=== PATIENT | female | born 1965 | race Caucasian/White ===

== ENCOUNTER 2018-02-11 11:32 | Emergency (ER) | payer MEDICAID ==
[~2018-02-11] VITALS: Ht 167.6 cm; Wt 95.3 kg
--- NOTE | 2018-02-11 11:32 | NUR ---
PT BIBA TO BED 3.
[2018-02-11 11:35] VITALS: BP 165/90
--- NOTE | 2018-02-11 11:39 | NUR ---
52 YO F BIBA AFTER SYNCOPAL EPISODE. PER HAT BLOCK BENCH HAND AND HUSABAND (AT BEDSIDE) PT AND SPOUSE WERE ARGUING, WHEN PT "LEANED UP AGAINST THE WALL, SLID DOWN THE WALL AND FELL TO THE FLOOR". PT VSS. RESPIRATIONS EVEN AND UNLABORED. CMS INTACT. PT IS NONVERBAL AT THIS TIME. PT IS NONRESPONSIVE TO VOICE/TOUCH AT THIS TIME. WHEN PALPATING PT SIDE/ABD, PT MOVEMENT NOTED AT THIS TIME. NO PAST MED HX. NKDA. ER MD CARBAJAL MADE AWARE OF PT CONDITION. NEEDS MET AT THIS TIME. WILL CONTINUE TO MONITOR.
[2018-02-11 12:08] LABS: BASOPHILS # (AUTO) 0.3 K/uL (0.00-0.22); EOSINOPHILS # (AUTO) 0.1 K/uL (0-0.4); EOSINOPHILS % (AUTO) 1.9 % (0.0-4.0); HEMOGLOBIN 11.6 g/dL (12.0-16.0); LYMPHOCYTES # (AUTO) 1.1 K/uL (2.5-16.5); LYMPHOCYTES % (AUTO) 16.8 % (20.5-51.1); MEAN CORPUSCULAR HEMOGLOBIN 32 pg (27-31); MEAN CORPUSCULAR HGB CONC 34 g/dL (33-37); MEAN CORPUSCULAR VOLUME 93 fL (80-94); MONOCYTES # (AUTO) 0.6 K/uL (0.8-1.0); MONOCYTES % (AUTO) 8.6 % (1.7-9.3); NEUTROPHILS # (AUTO) 4.6 K/uL (1.8-7.7); NEUTROPHILS % (AUTO) 68.7 % (42.2-75.2); PLATELET COUNT (AUTO) 303 K/uL (140-450); RED BLOOD CELL COUNT(AUTO) 3.67 MIL/uL (4.20-5.40); RED CELL DISTRIBUTION WIDTH 12.8 % (11.6-13.7); WHITE BLOOD COUNT (AUTO) 6.7 K/uL (4.8-10.8)
[2018-02-11 12:39] LABS: ALBUMIN 2.7 g/dL (3.4-5.0); ANION GAP 11.1 (8-16); CARBON DIOXIDE 26.2 mmol/L (21-32); POTASSIUM 3.3 mmol/L (3.5-5.1); TOTAL BILIRUBIN 0.5 mg/dL (0.0-1.0)
--- NOTE | 2018-02-11 12:47 | NUR ---
PT IS NO LONGER AT THE BEDSIDE. PT DTR IS NOW AT THE BEDSIDE. PT IS AWAKE AND TALKING. A&O X 4. DENIES ANY PAIN. SPEECH IS CLEAR. C/O "CHEST CONGESTION W/ MAYBE HEART PAIN". LUNG SOUNDS CLEAR BILATERALLY. RESPIRATIONS EVEN AND UNLABORED. ER MD NOTIFIED. PT NEEDS MET AT THIS TIME. WILL CONTINUE TO MONITOR.
[2018-02-11] MEDS ORDERED: KETOROLAC 30 MG/ML VIAL IVP ONE (13:00)
[2018-02-11 13:19] LABS: PROTHROMBIN TIME 10.3 secs (10.8-13.4)
--- NOTE | 2018-02-11 14:17 | NUR ---
PT RE-ASSESSED PRIOR TO D/C W/ O2 SAT 81%. ER MD CARBAJAL NOTIFIED. APPLIED O2 VIA NC 2L/MIN. PT O2 SAT INCREASED RO 99%. WILL CONTINUE TO MONITOR.
[2018-02-11] MEDS ORDERED: NACL 0.9% 1,000 ML IV SCH (14:42)
[2018-02-11] MEDS ORDERED: ALBUTEROL SULFATE/IPRATROPIU 3 ML SOL IH PRN (14:45)
[2018-02-11] MEDS ORDERED: MECLIZINE 25 MG TAB PO PRN (14:45)
[2018-02-11] MEDS ORDERED: ACETAMINOPHEN 325 MG TAB PO PRN (14:45)
--- NOTE | 2018-02-11 14:50 | NUR ---
PT STATES "I FEEL FINE. I WANT TO GO HOME"; PT STATES NO SHORTNESS OF BREATH, NO DIFFICULTY BREATHING, NO PAIN AT THIS TIME; BL LUNG SOUNDS CLEAR, RR EVEN/UNLABORED, EQUAL RISE/FALL OF CHEST NOTED AT THIS TIME; PT SPEAKING IN FULL, COMPLETE SENTENCES AT THIS TIME; PT AA&OX4 TO SELF, TIME, DATE & SITUATION; CHANGED PULSE OXIMETRY AND REMOVED O2; PT O2 SATURATION 100% ON ROOM AIR AT THIS TIME; ER MD DR. CARBAJAL NOTIFIED. OK TO DISCHARGE.
--- NOTE | 2018-02-11 14:55 | NUR ---
IV removed, catheter intact and site benign. Applied folded 4x4 gauze and tape to stop bleeding. PT TOLERATED PROCEDURE WELL.
[2018-02-11 14:56] VITALS: BP 141/80
--- NOTE | 2018-02-11 14:57 | NUR ---
Patient discharged with v/s stable. Written and verbal after care instructions given and explained. Patient alert, oriented and verbalized understanding of instructions. Ambulatory with steady gait. All questions addressed prior to discharge. ID band removed. Patient advised to follow up with PMD. Rx of SUDAFED 120 MG AND PREDNISONE 20 MG given. Patient educated on indication of medication including possible reaction and side effects. Opportunity to ask questions provided and answered.
[2018-02-11] MEDS ORDERED: ALBUTEROL SULFATE/IPRATROPIU 3 ML SOL IH SCH (19:00)
[2018-02-11] MEDS ORDERED: POTASSIUM CHLORIDE 20% 40 MEQ/15 ML UDC PO SCH (21:00)
[2018-02-12] MEDS ORDERED: PANTOPRAZOLE 40 MG TABEC PO SCH (09:00)
[2018-02-12] MEDS ORDERED: DOCUSATE 100 MG/10 ML UDC GT SCH (09:00)
--- NOTE | 2018-02-12 17:02 | NUR ---
P.T. NOTES P.T. EVAL ORDER CANCELLED.
== END 2018-02-11 14:57 | disposition home or self-care (01) ==
LOC: MED 11:32 → UNDOADMIN 14:48 → MTU 14:48 → MED 14:57
DX: R55 Syncope and collapse (principal); J32.9 Chronic sinusitis, unspecified
CPT/HCPCS: 36415; 70450; 71045; 80053; 83880; 84484; 85025; 85610; 85730; 93005; 96372; 99285; J1885; Q0092

== ENCOUNTER 2021-05-06 15:42 | Emergency (ER) | payer SELFPAY ==
[~2021-05-06] VITALS: Ht 162.6 cm; Wt 95.3 kg
[2021-05-06 15:54] VITALS: BP 111/68
--- NOTE | 2021-05-06 16:19 | NUR ---
PT AMBULATED TO BED 11.
--- NOTE | 2021-05-06 16:45 | NUR ---
56 YEAR OLD FEMALE COMPLAINS OF PELVIC PAIN X 1 MONTH. PT STATES NAUSEA, VOMITTING, DIARRHEA. PT STATES THAT SHE DID METH 2 DAYS AGO. BOWEL SOUNDS + ALL QUADRANTS, SOFT NONTENDER. PT AOX4, BREATHING EVEN AND UNLABORED, SKIN WARM AND DRY. BED IN LOWEST POSITION, LOCKED, BED RAIL UPX1 PMH - METH ABUSE ALLERGIES - NKA
--- NOTE | 2021-05-06 17:25 | NUR ---
PT ALERT AND AWAKE, BREATHING EVEN AND UNLABORED. PT STILL UNABLE TO URINATE, ANSON YODER AWARE
[2021-05-06] MEDS ORDERED: ACET-10509 PO (17:50)
--- NOTE | 2021-05-06 17:55 | NUR ---
Patient discharged with v/s stable. Written and verbal after care instructions about abdominal pain given and explained. Patient alert, oriented and verbalized understanding of instructions. Ambulatory with steady gait. All questions addressed prior to discharge. ID band removed. Patient advised to follow up with PMD. Rx of tylenol given. Patient educated on indication of medication including possible reaction and side effects. Opportunity to ask questions provided and answered.
[2021-05-06 17:57] VITALS: BP 107/60
== END 2021-05-06 17:55 | disposition home or self-care (01) ==
LOC: MED 15:42
DX: R10.30 Lower abdominal pain, unspecified (principal); Z79.899 Other long term (current) drug therapy
CPT/HCPCS: 81002; 99282

== ENCOUNTER 2021-07-20 19:34 | Emergency (ER) | payer SELFPAY ==
[~2021-07-20] VITALS: Ht 162.6 cm; Wt 102.1 kg
[~2021-07-20 19:34] MED LIST: ACET-10509 PO
[2021-07-20 20:21] VITALS: BP 106/47
--- NOTE | 2021-07-20 20:21 | NUR ---
TO A/W ERMD EVALUATION.
--- NOTE | 2021-07-20 20:30 | NUR ---
PT EVALUATED BY DR. SORIANO
--- NOTE | 2021-07-20 21:45 | NUR ---
PT UP FOR DISCHARGE. PT LEFT WITHOUT DISCHARGE INSTRUCTIONS.
== END 2021-07-20 21:45 | disposition home or self-care (01) ==
LOC: MED 19:34
DX: U07.1 COVID-19 (principal); J12.89 Other viral pneumonia; B34.9 Viral infection, unspecified; Z79.899 Other long term (current) drug therapy
CPT/HCPCS: 71045; 99284

== ENCOUNTER 2021-07-22 23:45 | Inpatient (IN) | payer OTHER, SELFPAY ==
[~2021-07-22] VITALS: Ht 162.6 cm; Wt 127.9 kg
[2021-07-22 23:50] VITALS: BP 134/62
--- NOTE | 2021-07-22 23:50 | NUR ---
TO BED AMBULATORY
[2021-07-23] VITALS (10 sets, daily range): BP systolic 122–164; BP diastolic 62–88
--- NOTE | 2021-07-23 00:10 | NUR ---
RECEIVED IN BED 3 , COVID (+) WITH C/O GENERAL WEAKNESS. IS RESTLESS AND MOANS LOUDLY. IS PALE WARM AND DRY
[2021-07-23] MEDS ORDERED: metroNIDAZOLE 500 MG/NS PREMIX 100 ML IV ONE (01:10)
[2021-07-23] MEDS ORDERED: LEVOFLOXACIN 500 MG/D5W PREMIX 100 ML IV ONE (01:10)
[2021-07-23 02:13] LABS: MEAN CORPUSCULAR HEMOGLOBIN 20 pg (27-31); MEAN CORPUSCULAR HGB CONC 27 g/dL (33-37); MEAN CORPUSCULAR VOLUME 72.5 fL (80-94); PLATELET COUNT (AUTO) 405 K/uL (140-450); RED BLOOD CELL COUNT(AUTO) 1.98 MIL/uL (4.20-5.40); RED CELL DISTRIBUTION WIDTH 23.5 % (11.6-13.7); WHITE BLOOD COUNT (AUTO) 18.6 K/uL (4.8-10.8)
[2021-07-23] MEDS ORDERED: KETOROLAC 30 MG/ML VIAL IVP ONE (02:15)
[2021-07-23] MEDS ORDERED: LORazepam 2 MG/ML VIAL IVP ONE ×2 (02:15→06:20)
--- NOTE | 2021-07-23 02:20 | NUR ---
TO CT VIA [facility]
[2021-07-23 02:25] LABS: HEMATOCRIT 14.3 % (36-48); HEMOGLOBIN 3.9 g/dL (12.0-16.0)
[2021-07-23 02:30] LABS: LYMPHOCYTES % (MANUAL) 4 % (20-46); MONOCYTES % (MANUAL) 1 % (5-12)
--- NOTE | 2021-07-23 02:30 | NUR ---
RETURNED FROM CT
[2021-07-23 02:32] LABS: ALBUMIN 2.4 g/dL (3.4-5.0); ANION GAP 19.2 (8-16); CARBON DIOXIDE 17.1 mmol/L (21-32); CREATININE 2.3 mg/dL (0.6-1.3); POTASSIUM 4.3 mmol/L (3.5-5.1); TOTAL BILIRUBIN 0.4 mg/dL (0.0-1.0)
--- NOTE | 2021-07-23 02:52 | NUR ---
Female Pump Service Supervisor accompanied female patient for Rectal Exam. Patient tolerated well.
--- NOTE | 2021-07-23 03:26 | NUR ---
REMAINS VERY RESTLESS. ASSISTED ONTO BEDPAN, UNABLE TO VOID. CHANGED INTO GOWN, VERY RESTLESS. LABS WERE DRAWN FOR TYPE AND CROSS.
--- NOTE | 2021-07-23 03:50 | NUR ---
GAVE VERBAL AUTHORIZATION FOR BLOODTRANSFUSION OVER TO PHONE AND WITNESSED BY JUWAN RUFFIN. PATIENT'S ALSO GAVE VERBAL CONSENT FOR FULL CODE.
--- NOTE | 2021-07-23 04:00 | NUR ---
THRASHING AROUND RIPPED IV OUT. PULLS CORDS. BROKE CARDIAC LEADS. NO SEDATION AVAILABLE. ENCOURAGED PT TO REMAIN IN BED. CM = ST
[2021-07-23 04:13] LABS: APPEARANCE,URINE HAZY (CLEAR); BILIRUBIN,URINE NEGATIVE (NEGATIVE); BLOOD, URINE NEGATIVE (NEGATIVE); COLOR,URINE YELLOW (YELLOW); LEUKOCYTE ESTERASE ,URINE NEGATIVE (NEGATIVE); NITRITE, URINE NEGATIVE (NEGATIVE); UGLUCOSE NEGATIVE (NEGATIVE)
--- NOTE | 2021-07-23 04:20 | NUR ---
PRBC'S TRANSFUSION BEGUN.
[2021-07-23 04:25] LABS: RBC,URINE 0-5 /HPF (0-5)
--- NOTE | 2021-07-23 05:10 | NUR ---
UNIT #1 PRBC'S COMPLETED
--- NOTE | 2021-07-23 05:20 | NUR ---
UNIT #2 PRB'S BEGUN
[2021-07-23] MEDS ORDERED: ERGOCALCIFEROL 50,000 IU SGL PO ONE (05:40)
[2021-07-23] MEDS ORDERED: DEXAMETHASONE 4 MG/ML VIAL IVP ONE (05:40)
[2021-07-23] MEDS ORDERED: LOVENOX 1MG/KG Q12H SUBQ SCH (06:15)
[2021-07-23] MEDS ORDERED: HYDROcodone/APAP 5/325 MG 1 TAB TAB PO PRN (06:20)
--- NOTE | 2021-07-23 06:30 | NUR ---
ADMISSION ORDERS RECEIVED. MEDICATED WITH ATIVEN 1 MG SLOW IVP.
[2021-07-23] MEDS ORDERED: VITAMIN D 400 IU TAB ONE (06:37)
--- NOTE | 2021-07-23 06:49 | NUR ---
PATIENT FOUND REMOVING GOWN, LINES, AND ATTEMPTING TO REMOVE IV ACCESS. PATIENT WAS REORIENTED TO ROOM AND REASON FOR INTERVENTIONS. PATIENT CONTINUED AGITATED, ATTEMPTING TO GET OUT OF BED. PRN ATIVAN WAS ADMINISTERED PER MD ORDER. PATIENT STILL CONTINUED WITH AGITATION, ATTEMPTING TO GET OUT OF BED, ALMOST FALLING. DR VILLAGRAN WAS CALLED AND MADE AWARE, PER DR VILLAGRAN, GO SOFT WRIST RESTRAINTS ORDERED AT THIS TIME. Addendum: 07/23/21 at 1903 by fOelia Romo RN RN THE TIME IS 1848.
--- NOTE | 2021-07-23 07:00 | NUR ---
DR GUEVARA HERE TO EXAMINE PT
--- NOTE | 2021-07-23 07:13 | NUR ---
Received report from AUGUSTIN Franco. Transfer of care at this time.
--- NOTE | 2021-07-23 07:22 | NUR ---
GAVE REPORT TO AUGUSTIN FIGUEROA FOR PENDING ADMISSION. ETA 15 MINUTES.
--- NOTE | 2021-07-23 07:44 | NUR ---
RECEIVED REPORT FROM ED NURSE. PATIENT WAS BROUGHT IN TO ICU BED 1 VIA GURNEY, ALOC, LOW MUMBLING WHEN SPOKEN TO, NOT ANSWERING QUESTIONS NOR OPENING EYES. PER ED NURSE, SECOND UNIT OF PRBCs CURRENTLY INFUSING INTO R AC 18G. BREATHING EVEN AND UNLABORED, NO SIGNS OF ACUTE DISTRESS NOTED. PATIENT PLACED ON CORRECTIONAL OFFICER CHIEF. ADMISSION VITALS: HR 90, SPO2 88%, RR 23, BP 134/78, PLACED ON 2L NC WITH SPO2 INCREASED TO 100%. PATIENT POSITIONED IN ICU BED, NEW BEDDING AND GOWN PROVIDED. SKIN INTACT. SAFETY MEASURES IN PLACE. WILL MONITOR CLOSELY.
--- NOTE | 2021-07-23 07:47 | NUR ---
Patient will be admitted to care of DR. VILLAGRAN. Admited to ICU. Will go to room 1. Belongings list completed. Report to AUGUSTIN FIGUEROA.
[2021-07-23] MEDS ORDERED: guaiFENesin DM 200/20 MG-10 ML 10 ML UDC PO PRN (08:00)
[2021-07-23] MEDS: DEXT 5% /NACL 0.9% 1,000 ML IV SCH ×3 (08:00→23:12)
[2021-07-23] MEDS ORDERED: HYDROcodone/APAP 7.5/325 MG 1 TAB PO PRN (08:00)
[2021-07-23] MEDS ORDERED: ACETAMINOPHEN 325 MG TAB PO PRN (08:00)
[2021-07-23] MEDS ORDERED: ZOLPIDEM 5 MG TAB PO PRN (08:00)
[2021-07-23] MEDS ORDERED: DOCUSATE SODIUM 100 MG GELCAP PO PRN (08:00)
[2021-07-23] MEDS ORDERED: ALBUTEROL HFA MDI 90 MCG/ACTUATION 8 GM INH PRN (08:00)
[2021-07-23] MEDS ORDERED: ONDANSETRON 4 MG/2 ML VIAL IM/IVP PRN (08:00)
[2021-07-23] MEDS ORDERED: PANTOPRAZOLE 40 MG TABEC PO SCH (09:00)
[2021-07-23] MEDS ORDERED: ENOXAPARIN 120 MG/0.8 ML SYR SUBQ SCH (09:00)
[2021-07-23] MEDS: ASCORBIC ACID 500 MG TAB PO SCH (09:00)
[2021-07-23] MEDS: ZINC SULF 220 MG CAP PO SCH (09:00)
--- NOTE | 2021-07-23 09:32 | NUR ---
MORNING PO MEDS BEING HELD PATIENT IS NOT RESPONDING TO RN AND NOT COOPERATIVE AT THIS TIME. WILL CONTINUE TO MONITOR AND REASSESS.
--- NOTE | 2021-07-23 10:58 | NUR ---
FAMILY CALLED IN ATTEMPTS TO OBTAIN PATIENT HISTORY PATIENT IS UNABLE TO PROVIDE AT THIS TIME. WILL FOLLOW UP AND CALL BACK AGAIN IF NEEDED.
[2021-07-23 10:59] LABS: BASOPHILS % (AUTO) 0.1 % (0.0-2.0); HEMATOCRIT 22.8 % (36-48); HEMOGLOBIN 7.2 g/dL (12.0-16.0); LYMPHOCYTES # (AUTO) 0.7 K/uL (2.5-16.5); LYMPHOCYTES % (AUTO) 4.8 % (20.5-51.1); MEAN CORPUSCULAR HEMOGLOBIN 25 pg (27-31); MEAN CORPUSCULAR HGB CONC 32 g/dL (33-37); MEAN CORPUSCULAR VOLUME 79.7 fL (80-94); MONOCYTES # (AUTO) 0.3 K/uL (0.8-1.0); NEUTROPHILS # (AUTO) 14.3 K/uL (1.8-7.7); NEUTROPHILS % (AUTO) 93.1 % (42.2-75.2); PLATELET COUNT (AUTO) 310 K/uL (140-450); RED BLOOD CELL COUNT(AUTO) 2.86 MIL/uL (4.20-5.40); RED CELL DISTRIBUTION WIDTH 26.1 % (11.6-13.7); WHITE BLOOD COUNT (AUTO) 15.3 K/uL (4.8-10.8)
[2021-07-23 11:06] LABS: PROTHROMBIN TIME 12.6 secs (10.8-13.4)
--- NOTE | 2021-07-23 11:06 | NUR ---
DR VILLAGRAN WAS CALLED AND UPDATED ON PATIENT CONDITION AND LABORATORY VALUES SP BLOOD TRANSFUSION. PER DR VILLAGRAN, HOLD LOVENOX AND RECHECK CBC AT 1600 THIS SHIFT.
[2021-07-23 11:17] LABS: CHOL/HDL RATIO 3.2 (1-4.5); FREE T4 (FREE THYROXINE) 1.29 ng/dL (0.76-1.46); PHOSPHORUS 3.6 mg/dL (2.5-4.9); THYROID STIMULATING HORMONE 0.09 uIU/mL (0.34-3.74)
--- NOTE | 2021-07-23 11:22 | NUR ---
PATIENT , ORI, CALLED BACK AND PROVIDED PATIENT HISTORY/INFORMATION AT THIS TIME. HE WAS UPDATED ON PATIENT CONDITION AND ALL HIS QUESTIONS ANSWERED.
[2021-07-23] MEDS ORDERED: metroNIDAZOLE 500 MG/NS PREMIX 100 ML IV SCH (13:00)
--- NOTE | 2021-07-23 15:33 | NUR ---
PER DR VALDOVINOS, STOP ALL ABX AT THE MOMENT, ORDER STOOL CULTURE AND TEST FOR SHIGA TOXIN.
--- NOTE | 2021-07-23 16:18 | NUR ---
MEDICATIONS HELD DUE TO PATIENT LACK OF RESPONSE PER LETHARGIC STATE, MD AWARE AND IN AGREEMENT. WILL CONTINUE TO REASSESS.
[2021-07-23 17:39] LABS: BASOPHILS % (AUTO) 0.1 % (0.0-2.0); EOSINOPHILS % (AUTO) 0.1 % (0.0-4.0); HEMATOCRIT 24.3 % (36-48); HEMOGLOBIN 7.5 g/dL (12.0-16.0); LYMPHOCYTES % (AUTO) 5.8 % (20.5-51.1); MEAN CORPUSCULAR HEMOGLOBIN 25 pg (27-31); MEAN CORPUSCULAR HGB CONC 31 g/dL (33-37); MEAN CORPUSCULAR VOLUME 81.8 fL (80-94); MONOCYTES # (AUTO) 0.3 K/uL (0.8-1.0); MONOCYTES % (AUTO) 1.9 % (1.7-9.3); NEUTROPHILS % (AUTO) 92.1 % (42.2-75.2); PLATELET COUNT (AUTO) 306 K/uL (140-450); RED BLOOD CELL COUNT(AUTO) 2.97 MIL/uL (4.20-5.40); RED CELL DISTRIBUTION WIDTH 25.2 % (11.6-13.7); WHITE BLOOD COUNT (AUTO) 17.3 K/uL (4.8-10.8)
[2021-07-23] MEDS: LORazepam 2 MG/ML VIAL IM/IVP PRN (18:45)
--- NOTE | 2021-07-23 18:49 | NUR ---
PATIENT FOUND REMOVING GOWN, LINES, AND ATTEMPTING TO REMOVE IV ACCESS. PATIENT WAS REORIENTED TO ROOM AND REASON FOR INTERVENTIONS. PATIENT CONTINUED AGITATED, ATTEMPTING TO GET OUT OF BED. PRN ATIVAN WAS ADMINISTERED PER MD ORDER. PATIENT STILL CONTINUED WITH AGITATION, ATTEMPTING TO GET OUT OF BED, ALMOST FALLING. DR VILLAGRAN WAS CALLED AND MADE AWARE, PER DR VILLAGRAN, GO SOFT WRIST RESTRAINTS ORDERED AT THIS TIME.
--- NOTE | 2021-07-23 19:10 | NUR ---
RECEIVED PATIENT ON BED, RESTLESS, AGITATED AND CONFUSED; ON ROOM AIR SO2 96%. CARRDIACSCOPE SHOWS ON SINUS RHYTHM HR 93/MIN NO ARRHYTHMIAS SEEN. ABDOMEN IS SOFT AND OBESE, BOWEL SOUNDS +. WITH WYNNE CATH IN SITU TO GRAVITY DRAINAGE BAG DRAINING TO CLEAR YELLOW URINE OUTPUT; INTACT.
--- NOTE | 2021-07-23 20:30 | NUR ---
TOLERATED ORALLY;ATE HER DINNER WITH POOR APPETITE; BUT SHE VOMITTED IT ALL AFTER QUITE SOMETIME.
[2021-07-23] MEDS ORDERED: HALOPERIDOL IM 5 MG/ML VIAL ONE (22:40)
[2021-07-23] MEDS ORDERED: HALOPERIDOL IM 5 MG/ML VIAL IM SCH (22:40)
--- NOTE | 2021-07-23 22:40 | NUR ---
PATIENT IS SO RESTLESS AND AGITATED, SCREAMING AT THE TOP OF HER VOICE;REFERRED TO DR. VILLAGRAN, WITH ORDER TO GIVE HALDOL 5MG IM;GIVEN AND PATIENT WAS ABLE TO CALM AND ABLE TO SLEEP THEREAFTER.
[2021-07-24] VITALS (23 sets, daily range): BP systolic 118–167; BP diastolic 42–87
[2021-07-24] MEDS: LORazepam 2 MG/ML VIAL IM/IVP PRN ×2 (03:09→10:35)
[2021-07-24 06:22] LABS: ANION GAP 13.9 (8-16); CARBON DIOXIDE 20.9 mmol/L (21-32); CREATININE 1.3 mg/dL (0.6-1.3); POTASSIUM 3.8 mmol/L (3.5-5.1); TOTAL BILIRUBIN 0.5 mg/dL (0.0-1.0)
[2021-07-24] MEDS: DEXT 5% /NACL 0.9% 1,000 ML IV SCH (06:25)
[2021-07-24 06:26] LABS: BASOPHILS % (AUTO) 0.2 % (0.0-2.0); EOSINOPHILS % (AUTO) 0.2 % (0.0-4.0); HEMATOCRIT 22.8 % (36-48); HEMOGLOBIN 7.2 g/dL (12.0-16.0); MEAN CORPUSCULAR HEMOGLOBIN 25 pg (27-31); MEAN CORPUSCULAR HGB CONC 31 g/dL (33-37); MEAN CORPUSCULAR VOLUME 80.7 fL (80-94); MONOCYTES # (AUTO) 0.4 K/uL (0.8-1.0); MONOCYTES % (AUTO) 2.6 % (1.7-9.3); NEUTROPHILS # (AUTO) 12.4 K/uL (1.8-7.7); PLATELET COUNT (AUTO) 329 K/uL (140-450); RED BLOOD CELL COUNT(AUTO) 2.82 MIL/uL (4.20-5.40); WHITE BLOOD COUNT (AUTO) 13.9 K/uL (4.8-10.8)
[2021-07-24 06:40] LABS: LYMPHOCYTES % (AUTO) 7.4 % (20.5-51.1); NEUTROPHILS % (AUTO) 89.6 % (42.2-75.2)
[2021-07-24] MEDS ORDERED: LEVOFLOXACIN 750 MG/D5W PREMIX 150 ML IV SCH (07:00)
[2021-07-24 07:06] LABS: T4 (THYROXINE) 7.9 ug/dL (4.5-12.0)
--- NOTE | 2021-07-24 07:20 | NUR ---
RECEIVED BEDSIDE REPORT FROM POWER ELECTRONICS RESEARCH ENGINEER NURSE. PATIENT SUPINE IN BED, HOB 30 DEGREES, SLEEPING, RESPONDS TO NAME. BREATHING EVEN AND UNLABORED, NO SIGNS OF ACUTE DISTRESS NOTED ON 2L NC. GO SOFT WRIST RESTRAINS IN PLACE, NO SIGNS OF INJURY NOTED. WYNNE CATHETER IN PLACE, DRAINING TO GRAVITY. DRAFTSPERSON IN PLACE, SAFETY MEASURES IN PLACE.
--- NOTE | 2021-07-24 07:30 | NUR ---
RECEIVED REPORT FROM JOSE ANTONIO RUFFIN , PT IN BED WITH ETT TO VENT HOB UP 30 DEGREE. PICC LINE ON RT UPPER ARM, IN PRO MARIELA .D5.45 NS AT 40ML/H, PRESCEDEX IV DRIP AT O.2NCG/KG/HR. NG TUBE FEEDING 40ML/HR WYNNE CATH DRAIN SMALL AMOUNT OF YELLOW URINE.RECTAL BAG HAS DARK COLOR LIQUID BM.. Addendum: 07/24/21 at 0808 by Sayra Coppola RN WRONG PATIENT.
[2021-07-24] MEDS ORDERED: HALOPERIDOL IM 5 MG/ML VIAL ONE (07:49)
--- NOTE | 2021-07-24 07:49 | NUR ---
PATIENT BECAME AGITATED AND RESTLESS, ATTEMPTING TO REMOVE PULSE OX ON FINGER AND GET OUT OF SOFT WRIST RESTRAINTS AND OUT OF BED, ATTEMPTING TO PULL AT WNYNE CATHETER. PATIENT REORIENTED TO ROOM AND SITUATION WITH CONTINUED AGITATION. DR OLSEN AT BEDSIDE AT THIS TIME AND ORDERS HALDOL 5MG IVP ONE TIME ORDER. MEDICATION ADMINISTERED, PATIENT NEEDING EDUCATION REINFORCEMENT. WILL CONTINUE TO MONITOR CLOSELY. ORDER FOR PRECEDEX DRIP PLACED AT THIS TIME PER DR OLSEN ORDERS WELL. Addendum: 07/24/21 at 0801 by Ofelia Romo RN RN HALDOL IM AND PRECEDEX DRIP
[2021-07-24 08:06] LABS: FOLIC ACID 19.5 ng/mL (>3.0)
[2021-07-24] MEDS ORDERED: HALOPERIDOL IM 5 MG/ML VIAL IM SCH (08:30)
[2021-07-24] MEDS: ASCORBIC ACID 500 MG TAB PO SCH (09:00)
[2021-07-24] MEDS: ZINC SULF 220 MG CAP PO SCH (09:00)
--- NOTE | 2021-07-24 09:01 | NUR ---
RECEIVED PHONE CALL FROM DR BEE AT THIS TIME. PER CHEMISTRY LAB VALUE RESULTS, RECEIVED ORDERS TO CHANGE FLUID TO D5 0.45NS @ 100 ML/HR.
[2021-07-24] MEDS: DEXT 5% / NACL 0.45% 1,000 ML IV SCH ×2 (09:05→19:05)
--- NOTE | 2021-07-24 09:58 | NUR ---
PO MEDS HELD DUE TO PATIENT SLEEPING AT THIS TIME SP CALMING MEDICATIONS. WILL REASSESS WHEN PATIENT WAKES UP AND IS MORE ALERT.
[2021-07-24] MEDS: DEXMEDETOMIDINE HCL 400 MCG in NACL 0.9% 96 ML IV SCH ×4 (11:31→22:18)
[2021-07-24] MEDS: SODIUM FERRIC GLUCONATE 125 MG in NACL 0.9% 100 ML IV SCH (12:00)
--- NOTE | 2021-07-24 19:30 | NUR ---
RECEIVED PATIENT FROM AM SHIFT NURSE FOR CONTINUITY OF CARE. RASS -3. RESPIRATIONS EVEN, UNLABORED. CONTINUES ON O2 2L VIA NC. O2SAT 97%. NO S/S RESPIRATORY DISTRESS. S1/S2 AUSCULTATED. FLACC 0. SKIN WARM, DRY. IV SITE TO RIGHT FOREARM 20G PATENT/INTACT, INFUSING FLUIDS AND PRECEDEX WELL. ABDOMEN SOFT, NONTENDER, NONDISTENDED. BOWEL SOUNDS ACTIVE x4 QUADRANTS. WYNNE CATHETER PATENT WITH YELLOW URINE DRAINING TO GRAVITY. SAFETY PRECAUTIONS IN PLACE. CALL LIGHT IN REACH. ISOLATION PRECAUTIONS OBSERVED BY ALL STAFF.
--- NOTE | 2021-07-24 21:14 | NUR ---
ALL NEEDS MET. NO S/S RESPIRATORY DISTRESS. FLACC 0. PATIENT IS CLEAN/DRY.
--- NOTE | 2021-07-24 23:30 | NUR ---
INCONTINENT CARE RENDERED. PATIENT WITH SMEAR BM, UNABLE TO OBTAIN SAMPLE AT THIS TIME. NO S/S RESPIRATORY DISTRESS. FLACC 0. CALL LIGHT IN REACH. SAFETY PRECAUTIONS IN PLACE. ISOLATION PRECAUTIONS OBSERVED.
[2021-07-25] VITALS (18 sets, daily range): BP systolic 137–176; BP diastolic 71–93
[2021-07-25] MEDS: LORazepam 2 MG/ML VIAL IM/IVP PRN (00:39)
--- NOTE | 2021-07-25 01:20 | NUR ---
TURNED AND REPOSITIONED. NO S/S RESPIRATORY DISTRESS. FLACC 0. PATIENT CLEAN/DRY. CALL LIGHT IN REACH. SAFETY PRECAUTIONS IN PLACE. ISOLATION PRECAUTIONS OBSERVED.
--- NOTE | 2021-07-25 03:00 | NUR ---
ALL NEEDS ANTICIPATED AND MET. NO S/S RESPIRATORY DISTRESS. FLACC 0. PATIENT CLEAN/DRY. CALL LIGHT IN REACH. SAFETY PRECAUTIONS IN PLACE. ISOLATION PRECAUTIONS OBSERVED.
[2021-07-25] MEDS: DEXT 5% / NACL 0.45% 1,000 ML IV SCH ×2 (04:11→15:05)
--- NOTE | 2021-07-25 05:10 | NUR ---
DUE MEDS GIVEN. NO S/S RESPIRATORY DISTRESS. FLACC 0. PATIENT CLEAN/DRY. CALL LIGHT IN REACH. SAFETY PRECAUTIONS IN PLACE. ISOLATION PRECAUTIONS OBSERVED.
[2021-07-25 05:59] LABS: ALBUMIN 1.8 g/dL (3.4-5.0); CARBON DIOXIDE 20.3 mmol/L (21-32); POTASSIUM 3.3 mmol/L (3.5-5.1); TOTAL BILIRUBIN 0.4 mg/dL (0.0-1.0)
[2021-07-25 06:01] LABS: BASOPHILS % (AUTO) 0.4 % (0.0-2.0); EOSINOPHILS # (AUTO) 0.1 K/uL (0-0.4); EOSINOPHILS % (AUTO) 0.9 % (0.0-4.0); HEMATOCRIT 23.6 % (36-48); HEMOGLOBIN 7.3 g/dL (12.0-16.0); LYMPHOCYTES # (AUTO) 0.6 K/uL (2.5-16.5); LYMPHOCYTES % (AUTO) 9.2 % (20.5-51.1); MEAN CORPUSCULAR HEMOGLOBIN 26 pg (27-31); MEAN CORPUSCULAR HGB CONC 31 g/dL (33-37); MEAN CORPUSCULAR VOLUME 81.9 fL (80-94); MONOCYTES # (AUTO) 0.3 K/uL (0.8-1.0); MONOCYTES % (AUTO) 5.1 % (1.7-9.3); NEUTROPHILS # (AUTO) 5.7 K/uL (1.8-7.7); NEUTROPHILS % (AUTO) 84.4 % (42.2-75.2); PLATELET COUNT (AUTO) 297 K/uL (140-450); RED BLOOD CELL COUNT(AUTO) 2.88 MIL/uL (4.20-5.40); RED CELL DISTRIBUTION WIDTH 25.8 % (11.6-13.7); WHITE BLOOD COUNT (AUTO) 6.7 K/uL (4.8-10.8)
--- NOTE | 2021-07-25 07:30 | NUR ---
RECIVED REPORT FROM FLEET DIRECTOR , PT. SLEEPING IN BED. THE MONITOR SHOW SHE IS SINUS BREDY CARDIA , IV GATE 20 ON LEFT HAND INFUSING D5 O.45 %NS AT 100ML/HR AND PRESIDEX 0.3MCG/KG/HR.. WYNNE CAT DRAIN CLEAR CARMELITA URINE. SKIN DRY AND WARM TO TOUCH.
--- NOTE | 2021-07-25 08:21 | NUR ---
PATIENT HAS BEEN SCREENED AND CATEGORIZED HIGH NUTRITION RISK. PATIENT WILL BE SEEN WITHIN 1-2 DAYS OF ADMISSION. 07/25/21-07/26/[address]
[2021-07-25] MEDS: DEXAMETHASONE 4 MG/ML VIAL IVP SCH (08:40)
[2021-07-25] MEDS: ASCORBIC ACID 500 MG TAB PO SCH (08:41)
[2021-07-25] MEDS: ZINC SULF 220 MG CAP PO SCH (08:41)
[2021-07-25] MEDS: PANTOPRAZOLE 40 MG INJ VIAL IVP SCH (08:42)
--- NOTE | 2021-07-25 08:48 | NUR ---
SEEN BY JOSE GUADALUPE WELCH AT [facility]. ORDER RECEIVED
[2021-07-25] MEDS ORDERED: OLANZapine 5 MG TAB PO SCH (09:00)
[2021-07-25] MEDS ORDERED: OLANZapine 10 MG VIAL IM PRN ×2 (09:05→09:55)
--- NOTE | 2021-07-25 10:00 | NUR ---
SEEN BY DR. FUNES NO ORDER RECEIVED.
--- NOTE | 2021-07-25 11:25 | NUR ---
ZYPREXA 5MG IM GIVEN PER ORDER DR. SHI.
[2021-07-25] MEDS: SODIUM FERRIC GLUCONATE 125 MG in NACL 0.9% 100 ML IV SCH (12:01)
[2021-07-25] MEDS: DEXMEDETOMIDINE HCL 400 MCG in NACL 0.9% 96 ML IV SCH ×2 (12:55→13:38)
--- NOTE | 2021-07-25 12:58 | NUR ---
07/25/21 RD INITIAL ASSESSMENT COMPLETED PLEASE REFER TO NUTRITION ASSESSMENT UNDER CARE ACTIVITY FOR ESTIMATED NUTRITIONAL NEEDS. 1. CONTINUE CARDIAC MECHANICAL SOFT DIET TOLERATED 2. PENDING SWALLOW EVALUATION RECOMMENDATIONS FOR FOOD TEXTURE AND LIQUID CONSISTENCIES 3. IF PO INTAKE IS LESS THAN 75% CONSIDER ENSURE BID 4. RD TO FOLLOW-UP 3-5 DAYS, MODERATE RISK TANYA LYLE RD
--- NOTE | 2021-07-25 13:00 | NUR ---
PT REMAIN SLEEPY AND SHANITA CARDIA PUT PRECEDEX DOWN TO 0.02 MDC/KG/HR REPOSITION.
--- NOTE | 2021-07-25 13:38 | NUR ---
SHE REMAIN SHANITA CARDIA BUT WHEN POSITION ASK HER QUESTION SHE ANSWER APPROPRIATELY POOR APPITITE.
--- NOTE | 2021-07-25 14:15 | NUR ---
C/C PRECEDEX IV DRIP, V/S STABLE WITH IN NORMAL LIMIT. Addendum: 07/26/21 at 1109 by Sayra Coppola RN D/C PREDEDEX.
--- NOTE | 2021-07-25 18:55 | NUR ---
PT WAS SEEN FOR DYSPHAGIA. PT WAS ABLE TO SAFELY SWALLOW PUREE DIET WITH THIN LIQUID WITHOUT S/S OF ASPIRATION. RECOMMENDATION PUREE DIET WITH THIN LIQUID
--- NOTE | 2021-07-25 19:00 | NUR ---
ARDEN UGARTE WAS OK , SHE ABLE TO EAT PUREE DIET
--- NOTE | 2021-07-25 19:30 | NUR ---
PT IS SLEEPING V/S STABLE, REPORT GIVE TO GARFIELD MARTINEZ RN.
[2021-07-25] MEDS: OLANZapine 10 MG VIAL IM SCH (21:23)
[2021-07-26] VITALS (14 sets, daily range): BP systolic 128–179; BP diastolic 56–94
[2021-07-26] MEDS: DEXT 5% / NACL 0.45% 1,000 ML IV SCH ×2 (01:05→12:47)
[2021-07-26 06:08] LABS: ALBUMIN 1.8 g/dL (3.4-5.0); ANION GAP 15.1 (8-16); CARBON DIOXIDE 21.2 mmol/L (21-32); POTASSIUM 3.3 mmol/L (3.5-5.1); TOTAL BILIRUBIN 0.4 mg/dL (0.0-1.0)
[2021-07-26 06:23] LABS: BASOPHILS % (AUTO) 0.2 % (0.0-2.0); HEMATOCRIT 24.8 % (36-48); HEMOGLOBIN 7.8 g/dL (12.0-16.0); LYMPHOCYTES # (AUTO) 0.6 K/uL (2.5-16.5); LYMPHOCYTES % (AUTO) 8.5 % (20.5-51.1); MEAN CORPUSCULAR HEMOGLOBIN 26 pg (27-31); MEAN CORPUSCULAR HGB CONC 32 g/dL (33-37); MEAN CORPUSCULAR VOLUME 80.7 fL (80-94); MONOCYTES # (AUTO) 0.5 K/uL (0.8-1.0); MONOCYTES % (AUTO) 7.2 % (1.7-9.3); NEUTROPHILS # (AUTO) 5.7 K/uL (1.8-7.7); NEUTROPHILS % (AUTO) 84.1 % (42.2-75.2); PLATELET COUNT (AUTO) 330 K/uL (140-450); RED BLOOD CELL COUNT(AUTO) 3.07 MIL/uL (4.20-5.40); RED CELL DISTRIBUTION WIDTH 26.2 % (11.6-13.7); WHITE BLOOD COUNT (AUTO) 6.8 K/uL (4.8-10.8)
--- NOTE | 2021-07-26 07:30 | NUR ---
RECEIVED REPORT FROM TANYA AYALA RN. PT. IS IN BED RESTLESS AGITATED YELLING AND SCREAMING PT RESTRAINED AT THE TIMR SHE IS RECEIVING O2 AT 3LNC BUT IT OFF FROM HER FACECE AT THE TIME BECAUSE SHE MOVE AROUND A LOT.. IV IN PROGRESS I D5 0.45 NS AT 100ML/HR. AND PRECEDEX O.2 NCG/KG/HR. WYNNE CATH DRAIN LIGHT CARMELITA URINE.
[2021-07-26] MEDS: LORazepam 2 MG/ML VIAL IM/IVP PRN (07:47)
--- NOTE | 2021-07-26 08:00 | NUR ---
PT CALM DOWN AFTER PRN MED GIVEN,IV ON RT ARM FOUND INFILTRATED IS BIG AND SWELLING. D/C IV, ADD RAISE ARM ON PILLOW. RESTART IV ON LEFT ARM. CALL REPORT TO DR VERDE TO HAVE ORDER FOR RICC LINE INSERTION.
[2021-07-26] MEDS: DEXAMETHASONE 4 MG/ML VIAL IVP SCH (08:28)
[2021-07-26] MEDS: OLANZapine 10 MG VIAL IM SCH ×2 (08:28→12:44)
[2021-07-26] MEDS: ZINC SULF 220 MG CAP PO SCH (08:29)
[2021-07-26] MEDS: ASCORBIC ACID 500 MG TAB PO SCH (08:29)
[2021-07-26] MEDS: PANTOPRAZOLE 40 MG INJ VIAL IVP SCH (08:29)
--- NOTE | 2021-07-26 09:15 | NUR ---
DC PLANNIN YRS OLD FEMALE PATIENT WAS ADMITTED FROM HOME WITH A DX OF COVID + PNA,RF AND ANEMIA. PT HAS NO MEDICAL HISTORY.CXR SHOWED MULTIFOCAL BILATERAL SMALL PATCHY AIR SPACE CONSOLIDATION. RAPID COVID TEST AND PCR POSITIVE. ON 2L/NC SATING 96%. VQ SCAN NEGATIVE FOR PE. H/H ON ADMISSION 3.9/14.3 TRANSFUSED 2 UNITS PRBC AND H/H 7.2/22.9 ADMINISTERED DECADRON. CONSULTED WITH ID, GI AND NEPHRO. DC PLAN PER PT RESPOND TO THE TREATMENT. CM TO FOLLOW Addendum: 07/26/21 at 1532 by Abena Lowery RN DC PLANNING: CALLED [employer] SPOKE WITH CASE LOADING SUPERVISOR, UPDATED PT'S CLINICAL SHE STATED CASE IS UNPROVED UNTIL DISCHARGE, NOTIFIED HER THAT WE RECEIVED A ONE DAY APPROVAL , SHE STATED IT WAS APPROVED UNTIL DISCHARGE AND SHE WILL FAX IT AGAIN. CM TO FOLLOW Addendum: 07/29/21 at 1459 by Abena Lowery RN DC PLANNING: RECEIVED A CALL FROM [facility] CM SPOKE WITH ADALBERTO SANTOS IS REVIEWING AND REQUESTED THE PSYCH NOTES TO BE FAXED TO [facility]ANT[facility]. CALLED [facility] SANT[facility] SPOKE WITH [facility] PT'S CLINICAL. SPOKE WITH PATIENT SHE AGREED AND CALLED HER VM NOT SET UP, CALLED HER SON SPOKE WITH DEE NOTIFIED HIM FOR THE NEED TO GO TO SNF FOR REHAB AND, HE AGREED AND WILL TELL HIS DAD . DC PLAN AWAITING FOR THE BED NUMBER. CM TO FOLLOW Addendum: 07/29/21 at [facility] by Abena Lowery RN DC PLANNING: PT GOT ACCEPTED AT [facility] DANIELLE CAN GO TO ROOM 122C # TO GIVE REPORT [phone] [facility] WILL ARRANGE TRANSPORT AND WILL CALL THE UNIT. CM TO FOLLOW
--- NOTE | 2021-07-26 11:22 | NUR ---
SEEN BY DR. SHI AT BEDSIDE, ORDER RECEIVED.
[2021-07-26] MEDS: QUEtiapine FUMARATE 25 MG TAB PO SCH ×2 (11:30→21:42)
[2021-07-26] MEDS: SODIUM FERRIC GLUCONATE 125 MG in NACL 0.9% 100 ML IV SCH (12:00)
--- NOTE | 2021-07-26 12:00 | NUR ---
SEEN BY DR. VERDE HE ALSO TALK TO PT SON UPDATE ABOUT PT. CONDITION..
--- NOTE | 2021-07-26 12:05 | NUR ---
OBTAIN PICC LINE CONSENT FROM PT. JERRY IRASEMA.
--- NOTE | 2021-07-26 12:30 | NUR ---
PT AWAKE TRY TO GET OUT OF BED AND PULLED OUT IV LINE MEDICATION GIVEN ORDERED.
--- NOTE | 2021-07-26 15:45 | NUR ---
REINSERTED NEW WYNNE CATH.
--- NOTE | 2021-07-26 19:44 | NUR ---
MPT. TRANSFER TO 12O BY HUBERT SHE IS STABLE DURING TRANSFER. CALL AND GIVE REPORT TO EWA RUFFIN.
--- NOTE | 2021-07-26 20:50 | NUR ---
PICC LINE NURSE ZECHARIAH AT BEDSIDE FOR PICC LINE INSERTION
--- NOTE | 2021-07-26 21:05 | NUR ---
PICC LINE INSERTION TO PRATIMA PICC, FLUSHED PATENT AND INTACT
--- NOTE | 2021-07-26 21:42 | NUR ---
ADMINISTERED 2100H MEDICATION PER MD ORDERS
--- NOTE | 2021-07-26 23:36 | NUR ---
PT COMPLAINED OF MILD PAIN 4/10 PAIN SCALE AND HAVING TROOUBL SLEEPING, ADMINISTERED AMBIEN AND NORCO PER MD ORDERS/PROTOCOL
[2021-07-27] VITALS: BP 150/72
--- NOTE | 2021-07-27 02:59 | NUR ---
MORNING CARE PROVIDED, LINEN CHANGE, PT SHOWING NO SIGNS OF ACUTE DISTRESS
[2021-07-27 04:00] VITALS: BP 149/78
[2021-07-27] MEDS: DEXT 5% / NACL 0.45% 1,000 ML IV SCH ×2 (04:51→22:44)
--- NOTE | 2021-07-27 05:09 | NUR ---
PT SEEMS TO BE ASLEEP AND SHOWING NO SIGNS OF ACUTE DISTRESS
[2021-07-27 05:51] LABS: BASOPHILS % (AUTO) 0.2 % (0.0-2.0); EOSINOPHILS # (AUTO) 0.1 K/uL (0-0.4); EOSINOPHILS % (AUTO) 0.7 % (0.0-4.0); HEMATOCRIT 23.8 % (36-48); HEMOGLOBIN 7.4 g/dL (12.0-16.0); LYMPHOCYTES # (AUTO) 0.7 K/uL (2.5-16.5); LYMPHOCYTES % (AUTO) 5.6 % (20.5-51.1); MEAN CORPUSCULAR HEMOGLOBIN 25 pg (27-31); MEAN CORPUSCULAR HGB CONC 31 g/dL (33-37); MEAN CORPUSCULAR VOLUME 82.1 fL (80-94); MONOCYTES # (AUTO) 0.6 K/uL (0.8-1.0); MONOCYTES % (AUTO) 4.9 % (1.7-9.3); NEUTROPHILS # (AUTO) 11.2 K/uL (1.8-7.7); NEUTROPHILS % (AUTO) 88.6 % (42.2-75.2); PLATELET COUNT (AUTO) 398 K/uL (140-450); RED CELL DISTRIBUTION WIDTH 26.9 % (11.6-13.7); WHITE BLOOD COUNT (AUTO) 12.6 K/uL (4.8-10.8)
[2021-07-27 06:25] LABS: ANION GAP 14.3 (8-16); CARBON DIOXIDE 21.7 mmol/L (21-32); CREATININE 0.9 mg/dL (0.6-1.3); TOTAL BILIRUBIN 0.5 mg/dL (0.0-1.0)
--- NOTE | 2021-07-27 07:53 | NUR ---
RECEIVED BEDSIDE REPORT FROM COMMUNITY OUTREACH DIRECTOR NURSE. PATIENT IN ISOLATION ROOM FOR COVID-19, RIGHT LATERAL IN BED, SLEEPING AT THIS TIME. BREATHING EVEN AND UNLABORED, NO SIGNS OF ACUTE DISTRESS NOTED ON RA. DOES NOT ANSWER WHEN CALLED, JUST MUMBLES, CONFUSED. PRATIMA PICC CLEAN DRY AND INTACT, FLUIDS REMOVED BY COMMUNITY OUTREACH DIRECTOR NURSE PATIENT WAS AGITATED, ATTEMPTING TO REMOVE LINES. D5 0.45%NS AT BEDSIDE ON IV POLE/PUMP. PHOTO PRINT SPECIALIST IN PLACE, SAFETY MEASURES IN PLACE.
--- NOTE | 2021-07-27 07:53 | NUR ---
ENDORSED TO DAY SHIFT RN FOR CONTINUITY OF CARE
[2021-07-27 08:00] VITALS: BP 143/90
[2021-07-27] MEDS: DEXAMETHASONE 4 MG/ML VIAL IVP SCH (08:24)
[2021-07-27] MEDS: PANTOPRAZOLE 40 MG INJ VIAL IVP SCH (08:24)
[2021-07-27] MEDS: ZINC SULF 220 MG CAP PO SCH (08:25)
[2021-07-27] MEDS: ASCORBIC ACID 500 MG TAB PO SCH (08:25)
[2021-07-27] MEDS: QUEtiapine FUMARATE 25 MG TAB PO SCH ×2 (08:25→21:26)
[2021-07-27] MEDS: OLANZapine 10 MG VIAL IM SCH (08:38)
--- NOTE | 2021-07-27 08:50 | NUR ---
ADMINISTERED AM SCHEDULED MEDS PER MD ORDERS. MED EDUCATION PROVIDED, REINFORCEMENT NEEDED. PATIENT IN BED WITH AGITATION, BREAKFAST TRAY AT BEDSIDE BUT PATIENT STATES SHE DOES NOT WANT TO EAT RIGHT NOW. PATIENT REORIENTED TO ROOM, CALL LIGHT WITHIN REACH, SAYS SHE WILL TRY TO SLEEP. PER SENIOR STOCK PLAN ADMINISTRATOR, THEY ARE LOOKING FOR A SITTER FOR THIS PATIENT FOR AGITATION. WILL CONTINUE TO CLOSELY MONITOR.
--- NOTE | 2021-07-27 10:03 | NUR ---
PATIENT IN BED, COMFORTABLE SLEEPING. BREATHING EVEN AND UNLABORED, NO SIGNS OF ACUTE DISTRESS NOTED ON RA. WILL CONTINUE TO CLOSELY MONITOR.
--- NOTE | 2021-07-27 11:23 | NUR ---
PATIENT CONTINUES IN BED, CALM AN COMFORTABLE SLEEPING. BREATHING EVEN AND UNLABORED, NO SIGNS OF ACUTE DISTRESS NOTED ON RA. WILL CONTINUE TO CLOSELY MONITOR.
[2021-07-27 12:00] VITALS: BP 145/72
--- NOTE | 2021-07-27 13:30 | NUR ---
PATIENT AWAKE, CALM AND RELAXED IN BED, STATES SHE DOES NOT NEED ANYTHING AT THIS TIME. BREATHING EVEN AND UNLABORED, NO SIGNS OF ACUTE DISTRESS NOTED ON RA. WILL CONTINUE TO MONITOR.
--- NOTE | 2021-07-27 15:03 | NUR ---
PATIENT SON CALLED BACK, UPDATED ON PATIENT CONDITION, ALL QUESTIONS ANSWERED AT THIS TIME.
--- NOTE | 2021-07-27 15:50 | NUR ---
PATIENT SLEEPING SUPINE IN BED, BREATHING EVEN AND UNLABORED NO SIGNS OF ACUTE DISTRESS NOTED ON RA. WILL CONTINUE TO MONITOR.
[2021-07-27 16:00] VITALS: BP 157/72
--- NOTE | 2021-07-27 18:28 | NUR ---
PATIENT SON, DEE CALLED BACK WITH UPDATES ON PATIENT CONDITION. ALL QUESTIONS ANSWERED AT THIS TIME.
[2021-07-27] MEDS: POTASSIUM CHLORIDE 40 MEQ, LIDOCAINE MPF 1% 25 MG in NACL 0.9% 250 ML IV PRN (19:20)
--- NOTE | 2021-07-27 19:30 | NUR ---
RECEIVED CARE AND REPORT FROM BARRON RN. PATIENT ALERT AND ORIENTED X2 TO PERSON, PLACE, PATIENT IS CONFUSED AT TIMES, MUMBLES WORDS. PATIENT ON ROOM AIR, OXYGEN SATURATION 95%, HOB 3O DEGREES, DENIES PAIN WHEN ASKED. NO OBVIOUS SIGNS OF DISTRESS OBSERVED WHILE AT THE BEDSIDE, IN A POSITION OF COMFORT. PATIENT CONNECTED TO TELE REGISTRATION SPECIALIST, NSR/ST. PATIENT ABLE TO USE BEDSIDE URINAL/BEDPAN WITH RN ASSISTANCE, NON-AMBULATORY. PATIENT IV SITES INCLUDE RIGHT UA PICC LINE, SITES INTACT, DRESSINGS DRY AND FLUSHING WELL. IV DRIPS RUNNING UPON ARRIVAL TO THE BEDSIDE INCLUDE D5-1/2 60 ML/HR. PATIENT SKIN INTACT. PATIENT BED LOCKED AND LOWERED INTO A POSITION OF SAFETY. PATIENT OFFLOADED WITH USE OF PILLOWS AND FREQUENT REPOSITIONING Q2 HOURS. SAFETY MEASURES IN PLACE, NURSE CALL LIGHT REMOTE IN PATIENT HAND, EDUCATED ON HOW TO USE AND ORIENTED TO ROOM ENVIRONMENT. PROMOTING A RESTFUL HEALING ENVIRONMENT WITH DECREASED STIMULI IN THE ROOM. WILL CONTINUE TO CLOSELY MONITOR, REASSESS OFTEN AND FREQUENTLY ROUND. Addendum: 07/28/21 at 0250 by Shukri Mancera RN RN SKINS INTACT, BRUISING OBSERVED ON BILATERAL FOREARMS.
--- NOTE | 2021-07-27 19:46 | NUR ---
PATIENT PULLED OUT PICC LINE.
[2021-07-27] MEDS ORDERED: OLANZapine 10 MG VIAL IM PRN (19:55)
[2021-07-27] MEDS ORDERED: MELATONIN 3 MG TAB PO PRN (19:55)
[2021-07-27 20:00] VITALS: BP 143/50
--- NOTE | 2021-07-27 20:37 | NUR ---
PT WAS SEEN AND ASSESSED. PT ON ROOM AIR. SPO2 92%. NO RESPIRATORY DISTRESS NOTED AT THIS TIME. WILL CONTINUE TO MONITOR PT.
--- NOTE | 2021-07-27 21:24 | NUR ---
LEFT UPPER ARM 18G IV STARTED, SITE SECURED, FLUSHING WELL AND PATENT. NO SIGNS OF DISTRESS OBSERVED WHILE AT THE BEDSIDE. PATIENT RESTING IN A POSITION OF COMFORT, SYMMETRICAL CHEST RISE AND FALL OBSERVED. AIRWAY OPEN, CLEAR AND MAINTAINABLE. WILL CONTINUE TO CLOSELY MONITOR AND FREQUENTLY ROUND.
--- NOTE | 2021-07-27 23:04 | NUR ---
PATIENT ASLEEP, RESTING IN A POSITION OF COMFORT, AIRWAY OPEN, CLEAR AND MAINTAINABLE, VS STABLE, WILL CONTINUE TO CLOSELY MONITOR AND FREQUENTLY ROUND.
[2021-07-28] VITALS: BP 142/84
--- NOTE | 2021-07-28 00:34 | NUR ---
RT CALLED TO BEDSIDE FOR PATIENT STATING FEELING SLIGHTLY SOB. RR 22, OXYGEN SATURATION 92% ON ROOM AIR. PATIENT PLACED ON NC 2 LPM AT BEDSIDE, PATIENT AWAKE, ALERT, RR 20, OXYGEN SATURATION 95% ON 2 LPM. PATIENT STATED FEELING BETTER AFTER NC PLACED. SYMMETRICAL CHEST RISE AND FALL OBSERVED. VS STABLE, AIRWAY OPEN, CLEAR AND MAINTAINABLE. WILL CONTINUE TO CLOSELY MONITOR AND FREQUENTLY ROUND.
--- NOTE | 2021-07-28 01:12 | NUR ---
PRN ATIVAN GIVEN PER MD ORDER, PATIENT SLIGHTLY RESTLESS/AGITATED COMFORT MEASURES PROVIDED AT THE BEDSIDE. WILL CONTINUE TO CLOSELY MONITOR AND FREQUENTLY ROUND.
[2021-07-28] MEDS: LORazepam 2 MG/ML VIAL IM/IVP PRN (01:14)
--- NOTE | 2021-07-28 02:26 | NUR ---
PATIENT SLEEPING IN A POSITION OF COMFORT, NO SIGNS OF DISTRESS OBSERVED. VS STABLE, WILL CONTINUE TO CLOSELY MONITOR AND FREQUENTLY ROUND.
[2021-07-28 04:00] VITALS: BP 148/57
--- NOTE | 2021-07-28 04:10 | NUR ---
MORNING CARE, GOWN, CHANGE, LINEN CHANGE, COMFORT MEASURES, SPONGE BATH AND SAFETY CHECKS PROVIDED. PATIENT RESTING IN A POSITION OF COMFORT, VS STABLE, SYMMETRICAL CHEST RISE AND FALL OBSERVED. WILL CONTINUE TO CLOSELY MONITOR AND FREQUENTLY ROUND.
[2021-07-28 06:21] LABS: BASOPHILS % (AUTO) 0.3 % (0.0-2.0); EOSINOPHILS # (AUTO) 0.1 K/uL (0-0.4); HEMATOCRIT 23.9 % (36-48); HEMOGLOBIN 7.3 g/dL (12.0-16.0); LYMPHOCYTES # (AUTO) 0.8 K/uL (2.5-16.5); LYMPHOCYTES % (AUTO) 6.1 % (20.5-51.1); MEAN CORPUSCULAR HEMOGLOBIN 26 pg (27-31); MEAN CORPUSCULAR HGB CONC 31 g/dL (33-37); MEAN CORPUSCULAR VOLUME 84.6 fL (80-94); MONOCYTES # (AUTO) 0.4 K/uL (0.8-1.0); MONOCYTES % (AUTO) 2.8 % (1.7-9.3); NEUTROPHILS % (AUTO) 89.8 % (42.2-75.2); PLATELET COUNT (AUTO) 339 K/uL (140-450); RED BLOOD CELL COUNT(AUTO) 2.83 MIL/uL (4.20-5.40); RED CELL DISTRIBUTION WIDTH 27.1 % (11.6-13.7); WHITE BLOOD COUNT (AUTO) 13.3 K/uL (4.8-10.8)
[2021-07-28 06:40] LABS: ALBUMIN 1.9 g/dL (3.4-5.0); ANION GAP 12.7 (8-16); CARBON DIOXIDE 22.3 mmol/L (21-32); CREATININE 0.9 mg/dL (0.6-1.3); TOTAL BILIRUBIN 0.7 mg/dL (0.0-1.0)
--- NOTE | 2021-07-28 06:50 | NUR ---
PRN TYLENOL GIVEN ORDERED BY MD FOR FEVER, COOLING MEASURES IN PLACE, PATIENT RESTING IN A POSITION OF COMFORT, SAFETY MEASURES, HOB 30 DEGREES, AIRWAY OPEN, CLEAR AND MAINTAINABLE, NC 2 LPM, RR 21, OXYGEN SATURATION 95%, DENIES SOB OR DIFFICULTY BREATHING WHEN ASKED. SAFETY CHECKS IN PLACE. NO SIGNS OF DISTRESS OBSERVED WHILE AT THE BEDSIDE. WILL CONTINUE TO CLOSELY MONITOR AND FREQUENTLY ROUND.
--- NOTE | 2021-07-28 07:30 | NUR ---
REPORT AND CARE ENDORSED TO THE DAYSHIFT RN, VS STABLE.
--- NOTE | 2021-07-28 07:35 | NUR ---
RECEIVED REPORT FROM NIGHTSHIFT NURSE. PT RESTING IN BED. ABLE TO MAKE SOME NEEDS KNOWN. PT DISROBING AND PULLING AT TELE MONITOR AND SPO2 MONITOR. RESPIRATIONS EVEN AND UNLABORED WITH NO SOB OR RESPIRATORY DISTRESS. PT HAS INTERMITTENT COUGHING. SKIN WARM AND DRY TO TOUCH. SAFETY MEASURES IN PLACE. WILL CONTINUE TO MONITOR
[2021-07-28 08:00] VITALS: BP 149/71
[2021-07-28] MEDS: ZINC SULF 220 MG CAP PO SCH (09:00)
[2021-07-28] MEDS: ASCORBIC ACID 500 MG TAB PO SCH (09:00)
[2021-07-28] MEDS: PANTOPRAZOLE 40 MG INJ VIAL IVP SCH (09:00)
[2021-07-28] MEDS: QUEtiapine FUMARATE 25 MG TAB PO SCH ×2 (09:00→21:11)
[2021-07-28] MEDS: DEXAMETHASONE 4 MG/ML VIAL IVP SCH (09:00)
--- NOTE | 2021-07-28 09:30 | NUR ---
ADMINISTERED SCHED MED PRESCRIBED PER MD ORDER. PT TOLERATED WELL. MEDICATION EDUCATION PERFORMED. PT VERBALIZED UNDERSTANDING. SAFETY MEASURES IN PLACE. WILL CONTINUE TO MONITOR
[2021-07-28] MEDS: DOCUSATE SODIUM 100 MG GELCAP PO SCH ×2 (10:08→21:11)
--- NOTE | 2021-07-28 10:15 | NUR ---
JERRY PRICE CALLED AND WANTED UPDATE. UPDATE GIVEN. SAFETY MEASURES IN PLACE. WILL CONTINUE TO MONITOR
--- NOTE | 2021-07-28 11:05 | NUR ---
PT DISROBING AND PULLING AT TELE MONITOR. REORIENTED PT BUT PT STILL CONFUSED. AAOX1. REPOSITIONED PT AND CLEANED UP. SAFETY MEASURES IN PLACE. WILL CONTINUE TO MONITOR
[2021-07-28 12:00] VITALS: BP 151/74
[2021-07-28] MEDS: POTASSIUM CHLORIDE 40 MEQ, LIDOCAINE MPF 1% 25 MG in NACL 0.9% 250 ML IV PRN (12:14)
--- NOTE | 2021-07-28 12:24 | NUR ---
ADMINISTERED SCHED MED PRESCRIBED PER MD ORDER. PT TOLERATED WELL. MEDICATION EDUCATION PERFORMED. PT CONFUSED AND UNABLE TO VERBALIZE UNDERSTANDING. SAFETY MEASURES IN PLACE. WILL CONTINUE TO MONITOR
--- NOTE | 2021-07-28 14:05 | NUR ---
PT OFF TELE. FOUND PATIENT NAKED. PT TOOK OFF GOWN AND TELE MONITOR. PT CONFUSED. REORIENTED PT BUT PATIENT STILL CONFUSED. AWARE. SAFETY MEASURES IN PLACE. WILL CONTINUE TO MONITOR
[2021-07-28] MEDS: DEXT 5% / NACL 0.45% 1,000 ML IV SCH (15:25)
[2021-07-28] MEDS ORDERED: LORazepam 0.5 MG TAB PO PRN (15:30)
--- NOTE | 2021-07-28 15:30 | NUR ---
PT RESTING IN BED. ABLE TO MAKE NEEDS KNOWN. RESPIRATIONS EVEN AND UNLABORED WITH NO SOB OR RESPIRATORY DISTRESS. SKIN WARM AND DRY TO TOUCH. SAFETY MEASURES IN PLACE. WILL CONTINUE TO MONITOR
[2021-07-28 16:00] VITALS: BP 153/74
[2021-07-28] MEDS ORDERED: cefTRIAXone 1,000 MG in LIDOCAINE MPF 1% 2.1 ML IM SCH (16:00)
--- NOTE | 2021-07-28 17:54 | NUR ---
JERRY PRICE CALLED AND WANTED ANOTHER UPDATE. UPDATE GIVEN. SAFETY MEASURES IN PLACE. WILL CONTINUE TO MONITOR
[2021-07-28] MEDS ORDERED: LIDOCAINE MPF 1% 5 ML ONE (18:19)
[2021-07-28] MEDS ORDERED: cefTRIAXone 1,000 MG VIAL ONE (18:20)
--- NOTE | 2021-07-28 19:20 | NUR ---
ENDORSED TO NIGHTSHIFT NURSE FOR CONTINUITY OF CARE
[2021-07-28 20:00] VITALS: BP 160/79
[2021-07-29 01:02] VITALS: BP 151/67
[2021-07-29 04:00] VITALS: BP 137/60
[2021-07-29 06:27] LABS: EOSINOPHILS % (AUTO) 0.3 % (0.0-4.0); HEMATOCRIT 23.1 % (36-48); HEMOGLOBIN 7.3 g/dL (12.0-16.0); LYMPHOCYTES # (AUTO) 0.5 K/uL (2.5-16.5); LYMPHOCYTES % (AUTO) 4.6 % (20.5-51.1); MEAN CORPUSCULAR HEMOGLOBIN 26 pg (27-31); MEAN CORPUSCULAR HGB CONC 32 g/dL (33-37); MEAN CORPUSCULAR VOLUME 83.6 fL (80-94); MONOCYTES # (AUTO) 0.4 K/uL (0.8-1.0); MONOCYTES % (AUTO) 3.2 % (1.7-9.3); NEUTROPHILS # (AUTO) 10.1 K/uL (1.8-7.7); NEUTROPHILS % (AUTO) 91.9 % (42.2-75.2); PLATELET COUNT (AUTO) 302 K/uL (140-450); RED BLOOD CELL COUNT(AUTO) 2.76 MIL/uL (4.20-5.40); RED CELL DISTRIBUTION WIDTH 27.6 % (11.6-13.7)
[2021-07-29 07:07] LABS: ALBUMIN 1.8 g/dL (3.4-5.0); ANION GAP 11.5 (8-16); CARBON DIOXIDE 22.6 mmol/L (21-32); CREATININE 0.8 mg/dL (0.6-1.3); POTASSIUM 3.1 mmol/L (3.5-5.1); TOTAL BILIRUBIN 0.8 mg/dL (0.0-1.0)
--- NOTE | 2021-07-29 07:52 | NUR ---
HANDOFF WITH AUGUSTIN RAMIREZ. IRVIN CHAVIS RN
[2021-07-29] MEDS ORDERED: PANTOPRAZOLE 40 MG TABEC PO SCH (09:00)
[2021-07-29] MEDS ORDERED: POLYETHYLENE GLYCOL 17 GM/PKT PO SCH (09:00)
[2021-07-29 11:43] VITALS: BP 139/58
[2021-07-29] MEDS: ZINC SULF 220 MG CAP PO SCH (11:48)
[2021-07-29] MEDS: DOCUSATE SODIUM 100 MG GELCAP PO SCH (11:49)
[2021-07-29] MEDS: ASCORBIC ACID 500 MG TAB PO SCH (11:49)
[2021-07-29] MEDS ORDERED: PANT40EC56 PO (12:53)
[2021-07-29] MEDS ORDERED: QUET25TA46 PO (12:53)
[2021-07-29] MEDS ORDERED: VITC500 PO (12:53)
[2021-07-29] MEDS ORDERED: ZINC220C29 PO (12:53)
[2021-07-29] MEDS ORDERED: ALBU0.0912 INH (12:53)
--- NOTE | 2021-07-29 16:31 | NUR ---
07/29/21 RD FOLLOW UP COMPLETED PLEASE REFER TO NUTRITION ASSESSMENT UNDER CARE ACTIVITY FOR ESTIMATED NUTRITIONAL NEEDS. 1. CONTINUE CARDIAC PUREE DIET TOLERATED 2. RD TO FOLLOW-UP 3-5 DAYS, MODERATE RISK TANYA LYLE RD
[2021-07-29] MEDS ORDERED: ROC1PM IV (16:58)
[2021-07-29 17:41] VITALS: BP 116/89
--- NOTE | 2021-07-29 19:20 | NUR ---
RECEIVED REPORT FROM DAY SHIFT NURSE. PATIENT IS AWAKE, RESPIRATION EVEN UNLABORED ON ROOM AIR. NO DISTRESS NOTED. SKIN IS WARM AND DRY. NO IV SITE NOTED. PATIENT IS BEING TRANSFER TO [facility] ROOM 122. DAY SHIFT NURSE ALREADY GAVE A REPORT FROM THE FACILITY. AWAITING FOR PATIENT TRANSPORTATION.
--- NOTE | 2021-07-29 20:20 | NUR ---
PATIENT WAS DISCHARGED, [facility] CAME TO PICK HER UP VIA GURNEY, DISCHARGE PAPER WORK PRINTED AND SIGNED, OFF TELE-MONITOR AND IV SITES/PATIENT ID BAND REMOVED, LEFT WITH BELONGINGS, AND IS HEADED TO [facility] IN [place] FOR PHYSICAL THERAPY. PT IS AWARE OF THIS TRANSFER. VITAL SIGNS ARE STABLE. CALLED PATIENTS SON DEE TO LET HIM KNOW OF THE TRANSFER.
[2021-07-29] MEDS ORDERED: QUEtiapine FUMARATE 25 MG TAB PO SCH (21:00)
== END 2021-07-29 20:20 | DRG 177 ==
LOC: MED 23:45 → MIC 07-23 06:23 → MTU 07-26 20:13
PROVIDERS: ADMIT Family Medicine; ATTEND Family Medicine
PROC: 30233N1 Transfusion of Nonautologous Red Blood Cells into Peripheral Vein, Percutaneous Approach (ICD-10-PCS; principal; 2021-07-23)
DX: U07.1 COVID-19 (principal); E43 Unspecified severe protein-calorie malnutrition; N17.0 Acute kidney failure with tubular necrosis; J12.82 Pneumonia due to coronavirus disease 2019; G93.41 Metabolic encephalopathy; J96.01 Acute respiratory failure with hypoxia; D59.3 Hemolytic-uremic syndrome; K92.2 Gastrointestinal hemorrhage, unspecified; A09 Infectious gastroenteritis and colitis, unspecified; E87.0 Hyperosmolality and hypernatremia; D68.59 Other primary thrombophilia; N39.0 Urinary tract infection, site not specified; Z68.42 Body mass index [BMI] 45.0-49.9, adult; R40.0 Somnolence; E87.6 Hypokalemia; D50.9 Iron deficiency anemia, unspecified; N18.9 Chronic kidney disease, unspecified; D63.8 Anemia in other chronic diseases classified elsewhere; E86.0 Dehydration; Z90.49 Acquired absence of other specified parts of digestive tract
CPT/HCPCS: 36415; 36600; 71045; 76770; 78582; 80053; 81001; 82150; 82607; 82728; 82746; 82803; 83036; 83540; 83605; 83615; 83690; 83735; 83880; 84100; 84436; 84439; 84443; 84479; 84484; 85025; 85045; 85379; 85610; 85651; 85730; 86140; 86886; 86900; 86901; 86920; 87040; 87081; 87086; 92610; 92700; 93005; 96365; 96367; 96375; 97116; 97163-GP; 97530; 99291; C9113; J0696; J1100; J1630; J1650; J1885; J1956; J2001; J2060; J2405; J2916; J3480; J3490; J7030; P9016; Q0092; U0003

== ENCOUNTER 2022-01-18 13:29 | Inpatient (IN) | payer MEDICAID, SELFPAY ==
[~2022-01-18] VITALS: Ht 162.6 cm; Wt 90.0 kg
[~2022-01-18 13:29] MED LIST changes: -ACET-10509 PO; +ALBU0.0912 INH; +PANT40EC56 PO; +QUET25TA46 PO; +ROC1PM IV; +VITC500 PO; +ZINC220C29 PO
[2022-01-18 13:50] VITALS: BP 142/103
--- NOTE | 2022-01-18 14:08 | NUR ---
56 y/o F BIB self frmo home c/o abdominal pain intermittently x 1 year. Patient A&Ox4, ambulatory, states testing + COVID last year diagnosed with parasites and reports low abdomen pain that self resolved upon ER arrival. Pt denies abdominal pain, chest pain, dysuria, nausea, vomiting, diarrhea, fever, chills, cold-like symptoms. States she was washing dishes at home when pain began and reports laying on stomach for 10 seconds alleviated pain. Pt denies meds prior to arrival; reports smoking meth this morning for pain management. Bed locked in lowest position, side rails x 1, call light in reach. PMH/Sx/Meds: Denies NKDA
--- NOTE | 2022-01-18 14:10 | NUR ---
Dr. Dixon is evaluating patient at bedside
--- NOTE | 2022-01-18 14:12 | NUR ---
Patient ambulated to restroom for urine sample attempt
[2022-01-18 14:17] LABS: BASOPHILS # (AUTO) 0.1 K/uL (0.00-0.22); BASOPHILS % (AUTO) 1.5 % (0.0-2.0); EOSINOPHILS # (AUTO) 0.1 K/uL (0-0.4); EOSINOPHILS % (AUTO) 1.3 % (0.0-4.0); HEMATOCRIT 20.2 % (36-48); LYMPHOCYTES # (AUTO) 1.5 K/uL (2.5-16.5); LYMPHOCYTES % (AUTO) 16.5 % (20.5-51.1); MEAN CORPUSCULAR HEMOGLOBIN 20 pg (27-31); MEAN CORPUSCULAR HGB CONC 29 g/dL (33-37); MEAN CORPUSCULAR VOLUME 69.9 fL (80-94); MONOCYTES # (AUTO) 0.5 K/uL (0.8-1.0); MONOCYTES % (AUTO) 6.1 % (1.7-9.3); NEUTROPHILS # (AUTO) 6.6 K/uL (1.8-7.7); NEUTROPHILS % (AUTO) 74.6 % (42.2-75.2); PLATELET COUNT (AUTO) 524 K/uL (140-450); RED BLOOD CELL COUNT(AUTO) 2.89 MIL/uL (4.20-5.40); RED CELL DISTRIBUTION WIDTH 21.4 % (11.6-13.7); WHITE BLOOD COUNT (AUTO) 8.8 K/uL (4.8-10.8)
[2022-01-18 14:22] LABS: HEMOGLOBIN 5.8 g/dL (12.0-16.0)
--- NOTE | 2022-01-18 14:28 | NUR ---
Critical lab reported by Areli from lab, hct 20.[address] Dixon made aware.
--- NOTE | 2022-01-18 14:35 | NUR ---
Female Operations Systems Specialist accompanied Dr. carter female for Rectal Exam.
--- NOTE | 2022-01-18 14:54 | NUR ---
Debi swab collected, handed to CPT Hailey
[2022-01-18 14:58] LABS: BILIRUBIN,URINE NEGATIVE (NEGATIVE); BLOOD, URINE NEGATIVE (NEGATIVE); COLOR,URINE YELLOW (YELLOW); LEUKOCYTE ESTERASE ,URINE 1+ (NEGATIVE); NITRITE, URINE NEGATIVE (NEGATIVE); UGLUCOSE NEGATIVE (NEGATIVE)
[2022-01-18 15:04] LABS: ANION GAP 14.7 (8-16); CARBON DIOXIDE 22.4 mmol/L (21-32); CREATININE 1.6 mg/dL (0.6-1.3); POTASSIUM 4.1 mmol/L (3.5-5.1); TOTAL BILIRUBIN 0.5 mg/dL (0.0-1.0)
[2022-01-18 15:05] LABS: ALBUMIN 3.2 g/dL (3.4-5.0)
[2022-01-18] MEDS ORDERED: MAG SULF 2000 MG/WATER PREMIX 50 ML IV PRN (15:05)
[2022-01-18] MEDS ORDERED: POTASSIUM CHLORIDE 10 MEQ TABER PO PRN (15:05)
[2022-01-18] MEDS ORDERED: HYDROcodone/APAP 5/325 MG 1 TAB TAB PO PRN (15:05)
[2022-01-18] MEDS ORDERED: ONDANSETRON 4 MG/2 ML VIAL IVP PRN (15:05)
[2022-01-18] MEDS ORDERED: ZOLPIDEM 5 MG TAB PO PRN (15:05)
[2022-01-18] MEDS ORDERED: ACETAMINOPHEN 325 MG TAB PO PRN (15:05)
[2022-01-18] MEDS ORDERED: DOCUSATE SODIUM 100 MG GELCAP PO PRN (15:05)
[2022-01-18] MEDS ORDERED: SODIUM PHOS / POTASSIUM PHOS 1 PKT PDR PO PRN (15:05)
[2022-01-18] MEDS ORDERED: LORazepam 2 MG/ML VIAL IM/IVP PRN (15:05)
[2022-01-18] MEDS ORDERED: MORPHINE SULFATE 2 MG/ML SYR IVP PRN (15:05)
[2022-01-18 15:06] LABS: APPEARANCE,URINE HAZY (CLEAR)
[2022-01-18 15:16] LABS: RBC,URINE NONE SEEN /HPF (0-5); WBC,URINE 20-60 /HPF (0-5)
[2022-01-18 15:19] LABS: PROTHROMBIN TIME 10.4 secs (10.8-13.4)
[2022-01-18 15:29] LABS: PHOSPHORUS 4.2 mg/dL (2.5-4.9)
--- NOTE | 2022-01-18 15:35 | NUR ---
RT at bedside for EKG
[2022-01-18] MEDS: NACL 0.9% 1,000 ML IV SCH (15:37)
--- NOTE | 2022-01-18 16:19 | NUR ---
Report given to AUGUSTIN Guido.
--- NOTE | 2022-01-18 16:23 | NUR ---
Patient will be admitted to care of Dr. Domingo. Admited to Telemetry. Will go to room 105A. Belongings list completed. Report to AUGUSTIN Guido.
--- NOTE | 2022-01-18 17:00 | NUR ---
RECEIVED PT TO 105A ON TELE . PT ON RA. PT BREATHING EVEN AND UNLABORED. NO S/S OF DISTRESS NOTED. PT IV ON LEFT AC IS PATENT AND INTACT. WILL RUN NS AT 100. PT IS CALM AND RESTING AND STABLE.
[2022-01-18 18:00] VITALS: BP 154/74
[2022-01-18 18:49] LABS: BARBITURATE, URINE NEGATIVE ng/ml (NEG <=200); BENZODIAZEPINE, URINE NEGATIVE ng/mL (NEG <=200); CANNABINOID, URINE NEGATIVE ng/mL (NEG <=50); COCAINE, URINE NEGATIVE ng/mL (NEG <=300); OPIATE, URINE NEGATIVE ng/mL (NEG <=2000); PHENCYCLIDINE SCREEN,URINE NEGATIVE ng/mL (NEG <=25)
--- NOTE | 2022-01-18 19:30 | NUR ---
RECEIVED PT AAPOX4 , NID - O2 SAT WNL , IV SITE INTACT AND PATENT . PLAN OF CARE DISCUSS AND VERBALIZES UNDERSTANDING , CALL LIGHT WITHIN REACH . ON TELE MONITOR .
--- NOTE | 2022-01-18 19:30 | NUR ---
PT ENDORSED TO ICER MACHINE NURSE FOR CONTINUITY OF CARE. POC DISCUSSED.
[2022-01-18 20:00] VITALS: BP 140/82
[2022-01-19] VITALS: BP 130/80
[2022-01-19] MEDS: NACL 0.9% 1,000 ML IV SCH ×3 (01:05→21:05)
--- NOTE | 2022-01-19 01:30 | NUR ---
BT COMPLETED - NO BT RXN NOTED - VOIDED FREELY - CLEAR U.O . WILL CONT. TO MONITOR .
--- NOTE | 2022-01-19 02:20 | NUR ---
ROUNDS , AWAKEABLE - NO S/SX OF BT RXN , NID - ON TELE MONITOR - WILL CONT. TO MONITOR Addendum: 01/19/22 at 0558 by Ibis Kelly RN VOIDED FREELY - CLEAR U.O Addendum: 01/19/22 at 0559 by Ibis Kelly RN 2ND UNIT OF PRBC STARTED - ON MONITORING . CALL LIGHT WITHIN REACH .
[2022-01-19 04:00] VITALS: BP 140/72
--- NOTE | 2022-01-19 04:00 | NUR ---
BT ON GOING - V/S WNL - NO S/SX OF BT RXN , NID NO S/SX OF ACUTE DISTRESS NORTED AT THIS TIME .
--- NOTE | 2022-01-19 05:57 | NUR ---
AWAKE , NO S/SX OF ACUTE DISTRESS NOTED AT THIS TIME , NO S/SX OF BT RXN . WILL CONT. TO MONITOR
--- NOTE | 2022-01-19 06:00 | NUR ---
2ND U PRBC COMPLETED - NO S/SX OF BT REACTION . NO COMPLAIN MADE . WILL CONT. TO MONITOR.
--- NOTE | 2022-01-19 06:15 | NUR ---
FOUND PLHEBOTOMIST ALREADY DRAWN THE BLOOD FOR AM LABS - WILL ENDORSE TO AM SHIFT IF THE H & H STILL LOW - WILL DRAW AGAIN BLOOD AT 8AM
[2022-01-19 07:11] LABS: BASOPHILS # (AUTO) 0.1 K/uL (0.00-0.22); BASOPHILS % (AUTO) 1.2 % (0.0-2.0); EOSINOPHILS # (AUTO) 0.3 K/uL (0-0.4); EOSINOPHILS % (AUTO) 4.3 % (0.0-4.0); LYMPHOCYTES # (AUTO) 1.5 K/uL (2.5-16.5); MEAN CORPUSCULAR HEMOGLOBIN 23 pg (27-31); MEAN CORPUSCULAR HGB CONC 31 g/dL (33-37); MEAN CORPUSCULAR VOLUME 73.8 fL (80-94); MONOCYTES # (AUTO) 0.4 K/uL (0.8-1.0); MONOCYTES % (AUTO) 5.9 % (1.7-9.3); NEUTROPHILS # (AUTO) 4.6 K/uL (1.8-7.7); NEUTROPHILS % (AUTO) 66.6 % (42.2-75.2); PLATELET COUNT (AUTO) 447 K/uL (140-450); RED BLOOD CELL COUNT(AUTO) 3.52 MIL/uL (4.20-5.40); RED CELL DISTRIBUTION WIDTH 22.4 % (11.6-13.7)
[2022-01-19 07:28] LABS: ANION GAP 13.1 (8-16); CARBON DIOXIDE 22.2 mmol/L (21-32); CREATININE 1.1 mg/dL (0.6-1.3); MAGNESIUM 2.1 mg/dL (1.8-2.4); POTASSIUM 4.3 mmol/L (3.5-5.1); TOTAL BILIRUBIN 0.9 mg/dL (0.0-1.0)
--- NOTE | 2022-01-19 07:30 | NUR ---
RECEIVED REPORT FROM KNIFER UP NURSE.
--- NOTE | 2022-01-19 07:42 | NUR ---
ENDORSED - PT - STABLE .
[2022-01-19 08:00] VITALS: BP 151/80
[2022-01-19 08:51] LABS: HEMATOCRIT 24.7 % (36-48); HEMOGLOBIN 7.7 g/dL (12.0-16.0)
--- NOTE | 2022-01-19 09:27 | NUR ---
PATIENT HAS BEEN SCREENED AND CATEGORIZED LOW NUTRITION RISK. PATIENT WILL BE SEEN WITHIN 7 DAYS OF ADMISSION. 01/19/22-01/25/[address]
--- NOTE | 2022-01-19 10:30 | NUR ---
SPOKE TO PHARMACY. WAITING ON BLOOD WORK BEFORE ACTIVATION OF NEW MEDICATION ORDER. WILL FOLLOW UP
--- NOTE | 2022-01-19 11:17 | NUR ---
DC PLANN[age] YRS OLD FEMALE PATIENT WAS ADMITTED FROM HOME WITH A DX OF ANEMIA. PATIENT HAS A HX OF METH USE. ON ADMISSION H/H 5.8/20.2 TRANSFUSED 2 UNITS OF PRBC H/H 8.0/26.0 7.6/24.[address] ABD MODERATE HIATAL HERNIA. ADMINISTERED IVF, IV ABX ROCEPHIN, AND IV FERRLECIT. DC PLAN TO GO HOME WHEN STABLE. CM TO FOLLOW.
--- NOTE | 2022-01-19 12:18 | NUR ---
PT TRANSFERRED TO MED-SURG. TELE REMOVED. SPOKE TO PHARMACY, WILL BRING FERROUS GLUCONATE PER MD.
[2022-01-19] MEDS ORDERED: SODIUM FERRIC GLUCONATE 125 MG in NACL 0.9% 100 ML IV SCH (13:00)
[2022-01-19] MEDS ORDERED: ASCO500T95 PO (13:54)
[2022-01-19] MEDS ORDERED: FERR325E14 PO (13:54)
--- NOTE | 2022-01-19 14:24 | NUR ---
PT IS ON 4L NC, SATURATING AT 95%. NO S/S OF DISTRESS. BP ELEVATED TO 190/87. CALL LIGHT IN REACH. ALL SAFETY MEASURES IN PLACE Addendum: 01/19/22 at 1426 by Kamala Rosado RN RN DISREGARD LAST NOTE
--- NOTE | 2022-01-19 14:26 | NUR ---
PT STABLE. PT NOTIFIED OF ORDERS FOR STOOL SAMPLE. COLLECTION CONTAINER AT BEDSIDE FOR PT. CALL LIGHT IN REACH. ALL SAFETY MEASURES IN PLACE
--- NOTE | 2022-01-19 14:28 | NUR ---
PT STABLE. NO S/S OF DISTRESS. CALL LIGHT IN REACH. ALL SAFETY MEASURES IN PLACE
[2022-01-19 15:12] LABS: BASOPHILS # (AUTO) 0.1 K/uL (0.00-0.22); BASOPHILS % (AUTO) 0.9 % (0.0-2.0); EOSINOPHILS # (AUTO) 0.2 K/uL (0-0.4); EOSINOPHILS % (AUTO) 3.7 % (0.0-4.0); HEMOGLOBIN 7.6 g/dL (12.0-16.0); LYMPHOCYTES # (AUTO) 1.3 K/uL (2.5-16.5); MEAN CORPUSCULAR HEMOGLOBIN 22 pg (27-31); MEAN CORPUSCULAR HGB CONC 30 g/dL (33-37); MEAN CORPUSCULAR VOLUME 73.5 fL (80-94); MONOCYTES # (AUTO) 0.4 K/uL (0.8-1.0); MONOCYTES % (AUTO) 5.9 % (1.7-9.3); NEUTROPHILS # (AUTO) 4.3 K/uL (1.8-7.7); NEUTROPHILS % (AUTO) 68.5 % (42.2-75.2); PLATELET COUNT (AUTO) 411 K/uL (140-450); RED CELL DISTRIBUTION WIDTH 22.4 % (11.6-13.7); WHITE BLOOD COUNT (AUTO) 6.2 K/uL (4.8-10.8)
--- NOTE | 2022-01-19 19:03 | NUR ---
ENDORSED PT TO SUPPLY CONTROLLER NURSE. PT AWAITING DC ORDER
--- NOTE | 2022-01-19 19:03 | NUR ---
RECEIVED PT AAOX4 , IV SITE INTACT AND PATENT , DENIES PAIN AT THIS TIME , PLAN OF CARE DISCUSSED AND VERBALIZES UNDESTANDING , CALL LIGHT WITHIN REACH - FOR STOOL OCCULT RE EMPHASIZED .WILL CONT. TO MONITOR.
[2022-01-19 20:00] VITALS: BP 140/81
--- NOTE | 2022-01-20 | NUR ---
ROUNDS , AWAKE , NO COMPLAIN MADE.
[2022-01-20 04:00] VITALS: BP 140/93
--- NOTE | 2022-01-20 04:02 | NUR ---
ROUNDS , IV SITE LEAKS - REMOVED IV NEEDLE - NEEDLE INTACT , MIN. BLEEDING , WILL RE INSERT NEW IV SITE .
--- NOTE | 2022-01-20 04:30 | NUR ---
NEW IV SITE INSERTED , PROCEDURE TOLERATED WELL - MIN. BLEEDING - WILL CONT. TO MONITOR .
[2022-01-20] MEDS: NACL 0.9% 1,000 ML IV SCH (07:05)
[2022-01-20 07:28] LABS: BASOPHILS # (AUTO) 0.1 K/uL (0.00-0.22); BASOPHILS % (AUTO) 0.8 % (0.0-2.0); EOSINOPHILS # (AUTO) 0.3 K/uL (0-0.4); EOSINOPHILS % (AUTO) 4.7 % (0.0-4.0); HEMATOCRIT 25.7 % (36-48); HEMOGLOBIN 7.8 g/dL (12.0-16.0); LYMPHOCYTES # (AUTO) 1.2 K/uL (2.5-16.5); LYMPHOCYTES % (AUTO) 16.2 % (20.5-51.1); MEAN CORPUSCULAR HEMOGLOBIN 22 pg (27-31); MEAN CORPUSCULAR HGB CONC 30 g/dL (33-37); MEAN CORPUSCULAR VOLUME 73.6 fL (80-94); MONOCYTES # (AUTO) 0.5 K/uL (0.8-1.0); MONOCYTES % (AUTO) 6.5 % (1.7-9.3); NEUTROPHILS # (AUTO) 5.1 K/uL (1.8-7.7); NEUTROPHILS % (AUTO) 71.8 % (42.2-75.2); PLATELET COUNT (AUTO) 407 K/uL (140-450); RED BLOOD CELL COUNT(AUTO) 3.49 MIL/uL (4.20-5.40); RED CELL DISTRIBUTION WIDTH 22.3 % (11.6-13.7); WHITE BLOOD COUNT (AUTO) 7.2 K/uL (4.8-10.8)
--- NOTE | 2022-01-20 07:41 | NUR ---
RECEIVED REPORT FROM LIQUOR CLERK NURSE
[2022-01-20 07:59] LABS: ALBUMIN 2.8 g/dL (3.4-5.0); ANION GAP 11.8 (8-16); CARBON DIOXIDE 22.5 mmol/L (21-32); MAGNESIUM 1.9 mg/dL (1.8-2.4); POTASSIUM 4.3 mmol/L (3.5-5.1); TOTAL BILIRUBIN 0.4 mg/dL (0.0-1.0)
--- NOTE | 2022-01-20 10:35 | NUR ---
PT DISCHARGED HOME IN PERSONAL VEHICLE. PT WALKED TO FRONT, PT REFUSED WHEELCHAIR FOR DC. ALL PERSONAL PROPERTY IN POSSESSION. NO S/S OF DISTRESS. IV REMOVED, CANULA INTACT. ID BAND REMOVED. ALL SAFETY MEASURES IN PLACE
== END 2022-01-20 10:52 | disposition home or self-care (01) | DRG 243 ==
LOC: MED 13:29 → MTU 14:59
PROVIDERS: ADMIT Family Medicine; ATTEND Family Medicine
PROC: 30233N1 Transfusion of Nonautologous Red Blood Cells into Peripheral Vein, Percutaneous Approach (ICD-10-PCS; principal; 2022-01-18)
DX: K21.9 Gastro-esophageal reflux disease without esophagitis (principal); N17.0 Acute kidney failure with tubular necrosis; E44.1 Mild protein-calorie malnutrition; D64.9 Anemia, unspecified; N39.0 Urinary tract infection, site not specified; Z20.822 Contact with and (suspected) exposure to COVID-19; K59.00 Constipation, unspecified; F15.10 Other stimulant abuse, uncomplicated; K44.9 Diaphragmatic hernia without obstruction or gangrene; R65.10 Systemic inflammatory response syndrome (SIRS) of non-infectious origin without acute organ dysfunction; Z68.34 Body mass index [BMI] 34.0-34.9, adult; Z79.899 Other long term (current) drug therapy
CPT/HCPCS: 36415; 36430; 71045; 80053; 80305; 81001; 82150; 83540; 83690; 83735; 84100; 84484; 85018; 85025; 85610; 85730; 86886; 86900; 86901; 86920; 87081; 87086; 96360; 99291; J0696; J2916; J7030; J7060; P9016

== ENCOUNTER 2022-10-04 23:55 | Emergency (ER) | payer MEDICAID, OTHER ==
[~2022-10-04] VITALS: Ht 162.6 cm; Wt 97.1 kg
[~2022-10-04 23:55] MED LIST changes: -ALBU0.0912 INH; +ASCO500T95 PO; +FERR325E14 PO; -PANT40EC56 PO; -QUET25TA46 PO; -ROC1PM IV; -VITC500 PO; -ZINC220C29 PO
[2022-10-05 01:23] VITALS: BP 175/87
--- NOTE | 2022-10-05 01:23 | NUR ---
pt to lobby
--- NOTE | 2022-10-05 02:00 | NUR ---
PATIENT AMBULATED TO BED 4
--- NOTE | 2022-10-05 02:09 | NUR ---
57/F BIB SELF C/C ABD PAIN [id number]. PATIETN REPORTS PAIN IN LOWER ABD AND RAD TO BLE S/P HAVING COVID. DENIES N/V/D/C/FEVER/CHILLS. PATIENT REPORTS SMOKING METH TO RELIEF PAIN X5HRS AGO, BUT IT WASNT EFFECTIVE. DENIES PMHX, RX NKA
--- NOTE | 2022-10-05 02:45 | NUR ---
ERMEv BEYER AT BEDSIDE
--- NOTE | 2022-10-05 03:01 | NUR ---
LAB AT BEDSIDE
--- NOTE | 2022-10-05 03:07 | NUR ---
PT TAKEN TO CT VIA W/C
[2022-10-05 03:12] LABS: APPEARANCE,URINE CLEAR (CLEAR); BILIRUBIN,URINE NEGATIVE (NEGATIVE); BLOOD, URINE NEGATIVE (NEGATIVE); COLOR,URINE YELLOW (YELLOW); LEUKOCYTE ESTERASE ,URINE NEGATIVE (NEGATIVE); NITRITE, URINE NEGATIVE (NEGATIVE); UGLUCOSE NEGATIVE (NEGATIVE)
[2022-10-05 03:12] LABS: BASOPHILS # (AUTO) 0.2 K/uL (0.00-0.22); BASOPHILS % (AUTO) 2.1 % (0.0-2.0); EOSINOPHILS # (AUTO) 0.1 K/uL (0-0.4); EOSINOPHILS % (AUTO) 1.1 % (0.0-4.0); LYMPHOCYTES # (AUTO) 1.4 K/uL (2.5-16.5); LYMPHOCYTES % (AUTO) 19.1 % (20.5-51.1); MEAN CORPUSCULAR HEMOGLOBIN 19 pg (27-31); MEAN CORPUSCULAR HGB CONC 28 g/dL (33-37); MEAN CORPUSCULAR VOLUME 68.8 fL (80-94); MONOCYTES # (AUTO) 0.5 K/uL (0.8-1.0); NEUTROPHILS # (AUTO) 5.4 K/uL (1.8-7.7); NEUTROPHILS % (AUTO) 71.7 % (42.2-75.2); PLATELET COUNT (AUTO) 443 K/uL (140-450); RED BLOOD CELL COUNT(AUTO) 2.43 MIL/uL (4.20-5.40); RED CELL DISTRIBUTION WIDTH 22.6 % (11.6-13.7); WHITE BLOOD COUNT (AUTO) 7.6 K/uL (4.8-10.8)
[2022-10-05 03:19] LABS: HEMATOCRIT 16.7 % (36-48); HEMOGLOBIN 4.7 g/dL (12.0-16.0)
--- NOTE | 2022-10-05 04:31 | NUR ---
ERMD AT BEDSIDE
--- NOTE | 2022-10-05 04:42 | NUR ---
GRISELDA COLLECTED AND WALKED TO Arkadin.
--- NOTE | 2022-10-05 04:51 | NUR ---
Female Sample Finisher accompanied female patient for Rectal Exam. WITH RAFAEL BEYER
--- NOTE | 2022-10-05 04:54 | NUR ---
MED REC COMPLETED. PATIENT IS NONCOMPLAINT WITH MEDS.
--- NOTE | 2022-10-05 05:54 | NUR ---
BLOOD TRANSFUSION SIGNED AND PLACED IN CHART
[2022-10-05 06:34] LABS: ALBUMIN 3.1 g/dL (3.4-5.0); ANION GAP 17.7 (8-16); CARBON DIOXIDE 18.1 mmol/L (21-32); CREATININE 1.7 mg/dL (0.6-1.3); POTASSIUM 3.8 mmol/L (3.5-5.1); TOTAL BILIRUBIN 0.6 mg/dL (0.0-1.0)
--- NOTE | 2022-10-05 07:10 | NUR ---
REPORT GIVEN TO AUGUSTIN LAFLEUR. TRANSFER OF CARE.
--- NOTE | 2022-10-05 10:50 | NUR ---
REPORT GIVEN TO WHITNEY OF [facility]
[2022-10-05 10:57] VITALS: BP 138/77
--- NOTE | 2022-10-05 10:57 | NUR ---
[facility] TRANSPORT BEDSIDE.
--- NOTE | 2022-10-05 10:57 | NUR ---
Patient to be transferred to [facility]. Is being transferred due to INSURANCE REQUEST. Receiving facility has accepting physician and available space. ER physician has signed transfer form. Patient or responsible green party has agreed to transfer and signed form. Patient belongings inventoried and will be sent with patient. Copy of nursing notes, lab reports, EKG, Physicians Orders and X-rays to be sent with patient. Report called to WHITNEY RUFFIN at receiving facility. [facility] ambulance service has been called for transfer. ETA is 25MIN.
== END 2022-10-05 10:57 | disposition short-term general hospital (02) ==
LOC: MED 23:55
DX: D64.9 Anemia, unspecified (principal); Z20.822 Contact with and (suspected) exposure to COVID-19; R10.32 Left lower quadrant pain; R11.2 Nausea with vomiting, unspecified; Z79.899 Other long term (current) drug therapy
CPT/HCPCS: 36415; 74176; 80053; 81003; 81025; 83690; 84703; 85025; 86886; 86900; 86901; 86920; 87426; 99291; P9016

== ENCOUNTER 2023-06-27 17:56 | Inpatient (IN) | payer MEDICAID, OTHER ==
[~2023-06-27] VITALS: Ht 160 cm; Wt 61.2 kg
[~2023-06-27 17:56] MED LIST changes: -ASCO500T95 PO
[2023-06-27 18:03] VITALS: BP 129/82; PULSE 132; RESP 18; TEMP 98.1; O2SAT 100
[2023-06-27] MEDS ORDERED: NACL 0.9% 1,000 ML IV SCH (18:30)
[2023-06-27] MEDS ORDERED: METOCLOPRAMIDE 10 MG/2 ML INJ VIAL IVP ONE (18:30)
[2023-06-27 18:50] LABS: BASOPHILS # (AUTO) 0.1 K/uL (0.00-0.22); BASOPHILS % (AUTO) 1.1 % (0.0-2.0); EOSINOPHILS # (AUTO) 0.1 K/uL (0-0.4); EOSINOPHILS % (AUTO) 1.1 % (0.0-4.0); HEMATOCRIT 22.4 % (36-48); LYMPHOCYTES # (AUTO) 0.7 K/uL (2.5-16.5); LYMPHOCYTES % (AUTO) 10.3 % (20.5-51.1); MEAN CORPUSCULAR HEMOGLOBIN 20 pg (27-31); MEAN CORPUSCULAR HGB CONC 29 g/dL (33-37); MEAN CORPUSCULAR VOLUME 68.4 fL (80-94); MONOCYTES # (AUTO) 0.3 K/uL (0.8-1.0); MONOCYTES % (AUTO) 5.1 % (1.7-9.3); NEUTROPHILS # (AUTO) 5.3 K/uL (1.8-7.7); NEUTROPHILS % (AUTO) 82.4 % (42.2-75.2); PLATELET COUNT (AUTO) 407 K/uL (140-450); RED BLOOD CELL COUNT(AUTO) 3.28 MIL/uL (4.20-5.40); RED CELL DISTRIBUTION WIDTH 21.5 % (11.6-13.7); WHITE BLOOD COUNT (AUTO) 6.4 K/uL (4.8-10.8)
[2023-06-27 19:06] LABS: HEMOGLOBIN 6.4 g/dL (12.0-16.0)
[2023-06-27 19:09] LABS: ALBUMIN 3.2 g/dL (3.4-5.0); ANION GAP 14.8 (8-16); CALCIUM 8.8 mg/dL (8.5-10.1); CARBON DIOXIDE 24.6 mmol/L (21-32); CREATININE 1.8 mg/dL (0.6-1.3); POTASSIUM 4.4 mmol/L (3.5-5.1); TOTAL BILIRUBIN 0.5 mg/dL (0.0-1.0); TOTAL PROTEIN, SERUM 7.6 g/dL (6.4-8.2)
[2023-06-27] MEDS ORDERED: PANTOPRAZOLE 40 MG INJ VIAL IVP ONE (20:30)
[2023-06-27 20:50] LABS: PARTIAL THROMBOPLASTIN TIME 21.2 secs (22-35.6); PROTHROMBIN TIME 10.5 secs (10.8-13.4)
[2023-06-27] MEDS ORDERED: ZOLPIDEM 5 MG TAB PO PRN (20:55)
[2023-06-27] MEDS ORDERED: guaiFENesin DM 200/20 MG-10 ML 10 ML UDC PO PRN (20:55)
[2023-06-27] MEDS ORDERED: HYDROcodone/APAP 7.5/325 MG 1 TAB PO PRN (20:55)
[2023-06-27] MEDS ORDERED: ONDANSETRON 4 MG/2 ML VIAL IM/IVP PRN (20:55)
[2023-06-27] MEDS ORDERED: POTASSIUM CHLORIDE 10 MEQ TABER PO PRN (20:55)
[2023-06-27] MEDS ORDERED: ACETAMINOPHEN 325 MG TAB PO PRN (20:55)
[2023-06-27] MEDS ORDERED: DOCUSATE SODIUM 100 MG GELCAP PO PRN (20:55)
[2023-06-27 21:50] VITALS: PULSE 94; RESP 18; O2SAT 99
[2023-06-27] MEDS: NACL 0.9% 1,000 ML IV SCH (22:21)
[2023-06-28] VITALS: PULSE 90
[2023-06-28 03:36] LABS: BASOPHILS # (AUTO) 0.1 K/uL (0.00-0.22); EOSINOPHILS # (AUTO) 0.1 K/uL (0-0.4); HEMATOCRIT 23.5 % (36-48); LYMPHOCYTES # (AUTO) 1.4 K/uL (2.5-16.5); LYMPHOCYTES % (AUTO) 21.7 % (20.5-51.1); MEAN CORPUSCULAR HEMOGLOBIN 22 pg (27-31); MEAN CORPUSCULAR HGB CONC 30 g/dL (33-37); MEAN CORPUSCULAR VOLUME 72.7 fL (80-94); MONOCYTES # (AUTO) 0.5 K/uL (0.8-1.0); MONOCYTES % (AUTO) 7.5 % (1.7-9.3); NEUTROPHILS # (AUTO) 4.3 K/uL (1.8-7.7); NEUTROPHILS % (AUTO) 67.8 % (42.2-75.2); PLATELET COUNT (AUTO) 310 K/uL (140-450); RED BLOOD CELL COUNT(AUTO) 3.24 MIL/uL (4.20-5.40); RED CELL DISTRIBUTION WIDTH 23.5 % (11.6-13.7); WHITE BLOOD COUNT (AUTO) 6.3 K/uL (4.8-10.8)
[2023-06-28 03:53] LABS: ALBUMIN 2.8 g/dL (3.4-5.0); ANION GAP 13.7 (8-16); CALCIUM 7.8 mg/dL (8.5-10.1); CARBON DIOXIDE 23.4 mmol/L (21-32); CREATININE 1.6 mg/dL (0.6-1.3); POTASSIUM 4.1 mmol/L (3.5-5.1); TOTAL BILIRUBIN 0.6 mg/dL (0.0-1.0); TOTAL PROTEIN, SERUM 6.5 g/dL (6.4-8.2)
[2023-06-28 04:00] VITALS: BP 143/86; PULSE 76; PULSE 86; RESP 18; TEMP 97.6; O2SAT 100
[2023-06-28 07:45] VITALS: PULSE 90; RESP 20; O2SAT 100
[2023-06-28 08:00] VITALS: BP 153/83; PULSE 75; PULSE 78; RESP 18; TEMP 97.3; O2SAT 100
[2023-06-28 08:53] LABS: HEMATOCRIT 27.2 % (36-48); HEMOGLOBIN 8.3 g/dL (12.0-16.0)
[2023-06-28] MEDS: PANTOPRAZOLE 40 MG TABEC PO SCH (10:14)
[2023-06-28 12:00] LABS: APPEARANCE,URINE CLEAR (CLEAR); BILIRUBIN,URINE NEGATIVE (NEGATIVE); BLOOD, URINE NEGATIVE (NEGATIVE); COLOR,URINE YELLOW (YELLOW); LEUKOCYTE ESTERASE ,URINE NEGATIVE (NEGATIVE); NITRITE, URINE NEGATIVE (NEGATIVE); PROTEIN,URINE NEGATIVE (NEGATIVE); UGLUCOSE NEGATIVE (NEGATIVE); UROBILINOGEN,URINE 0.2 EU/dL (0.2 - 1)
[2023-06-28 12:25] LABS: AMPHETAMINE, URINE POSITIVE ng/ml (NEG <=1000); BARBITURATE, URINE NEGATIVE ng/ml (NEG <=200); BENZODIAZEPINE, URINE NEGATIVE ng/mL (NEG <=200); CANNABINOID, URINE POSITIVE ng/mL (NEG <=50); COCAINE, URINE NEGATIVE ng/mL (NEG <=300); OPIATE, URINE NEGATIVE ng/mL (NEG <=2000); PHENCYCLIDINE SCREEN,URINE NEGATIVE ng/mL (NEG <=25)
[2023-06-28 16:00] VITALS: BP 155/73; PULSE 74; RESP 18; TEMP 98.8; O2SAT 100
[2023-06-28] MEDS: FERROUS SULFATE 325 MG TABEC PO SCH (16:40)
[2023-06-28] MEDS: NACL 0.9% 1,000 ML IV SCH (16:41)
[2023-06-28 20:00] VITALS: BP 106/67; PULSE 67; RESP 16; TEMP 97.9; O2SAT 97
[2023-06-29] MEDS: NACL 0.9% 1,000 ML IV SCH (05:37)
[2023-06-29 06:31] LABS: BASOPHILS # (AUTO) 0.1 K/uL (0.00-0.22); BASOPHILS % (AUTO) 1.1 % (0.0-2.0); EOSINOPHILS # (AUTO) 0.3 K/uL (0-0.4); EOSINOPHILS % (AUTO) 6.6 % (0.0-4.0); HEMATOCRIT 27.6 % (36-48); HEMOGLOBIN 8.4 g/dL (12.0-16.0); LYMPHOCYTES # (AUTO) 1.2 K/uL (2.5-16.5); LYMPHOCYTES % (AUTO) 23.5 % (20.5-51.1); MEAN CORPUSCULAR HEMOGLOBIN 23 pg (27-31); MEAN CORPUSCULAR HGB CONC 30 g/dL (33-37); MEAN CORPUSCULAR VOLUME 74.4 fL (80-94); MONOCYTES # (AUTO) 0.4 K/uL (0.8-1.0); MONOCYTES % (AUTO) 7.7 % (1.7-9.3); NEUTROPHILS # (AUTO) 3.2 K/uL (1.8-7.7); NEUTROPHILS % (AUTO) 61.1 % (42.2-75.2); PLATELET COUNT (AUTO) 293 K/uL (140-450); RED BLOOD CELL COUNT(AUTO) 3.71 MIL/uL (4.20-5.40); RED CELL DISTRIBUTION WIDTH 22.8 % (11.6-13.7); WHITE BLOOD COUNT (AUTO) 5.2 K/uL (4.8-10.8)
[2023-06-29 06:33] LABS: ALBUMIN 2.6 g/dL (3.4-5.0); ANION GAP 12.7 (8-16); CALCIUM 8.2 mg/dL (8.5-10.1); CARBON DIOXIDE 22.3 mmol/L (21-32); CREATININE 1.2 mg/dL (0.6-1.3); TOTAL BILIRUBIN 0.8 mg/dL (0.0-1.0); TOTAL PROTEIN, SERUM 6.6 g/dL (6.4-8.2)
[2023-06-29] MEDS ORDERED: fentaNYL citrate 0.05 MG/ML VIAL ONE (07:09)
[2023-06-29] MEDS ORDERED: MIDAZOLAM 2 MG/2 ML VIAL ONE (07:09)
[2023-06-29] MEDS ORDERED: fentaNYL citrate 0.05 MG/ML VIAL IVP ONE (07:55)
[2023-06-29] MEDS ORDERED: MIDAZOLAM 2 MG/2 ML VIAL IVP ONE (07:55)
[2023-06-29 08:04] VITALS: PULSE 69; RESP 20; O2SAT 99
[2023-06-29] MEDS: PANTOPRAZOLE 40 MG TABEC PO SCH (09:09)
[2023-06-29] MEDS: FERROUS SULFATE 325 MG TABEC PO SCH (09:09)
[2023-06-29] MEDS ORDERED: PANT40EC56 PO (10:06)
[2023-06-29] MEDS ORDERED: CLAR500T14 PO (10:06)
[2023-06-29] MEDS ORDERED: AMOX500C25 PO (10:06)
[2023-06-29] MEDS ORDERED: METR-520 PO (10:06)
[2023-06-29 12:49] VITALS: BP 125/68; PULSE 68; RESP 20; TEMP 97.1
== END 2023-06-29 13:10 | disposition home or self-care (01) | DRG 248 ==
LOC: MED 17:56 → MTU 20:56
PROVIDERS: ADMIT Student in an Organized Health Care Education/Training Program; ATTEND Student in an Organized Health Care Education/Training Program
PROC: 30233N1 Transfusion of Nonautologous Red Blood Cells into Peripheral Vein, Percutaneous Approach (ICD-10-PCS; 2023-06-27)
PROC: 0DB68ZX Excision of Stomach, Via Natural or Artificial Opening Endoscopic, Diagnostic (ICD-10-PCS; principal; 2023-06-29 07:30)
DX: A04.8 Other specified bacterial intestinal infections (principal); N17.0 Acute kidney failure with tubular necrosis; E46 Unspecified protein-calorie malnutrition; E87.8 Other disorders of electrolyte and fluid balance, not elsewhere classified; D50.9 Iron deficiency anemia, unspecified; F41.9 Anxiety disorder, unspecified; F15.10 Other stimulant abuse, uncomplicated; K44.9 Diaphragmatic hernia without obstruction or gangrene; K80.20 Calculus of gallbladder without cholecystitis without obstruction; Z68.23 Body mass index [BMI] 23.0-23.9, adult
CPT/HCPCS: 36415; 36430; 71045; 80053; 80305; 81003; 82150; 83690; 85018; 85025; 85610; 85730; 86677; 86886; 86900; 86901; 86920; 87081; 93005; 96361; 96374; 96375; 99285; C9113; J2250; J2765; J3010; J7030; P9016

== ENCOUNTER 2023-07-04 05:05 | Emergency (ER) | payer MEDICAID ==
[~2023-07-04] VITALS: Ht 157.5 cm; Wt 79.4 kg
[~2023-07-04 05:05] MED LIST changes: +AMOX500C25 PO; +CLAR500T14 PO; -FERR325E14 PO; +METR-520 PO; +PANT40EC56 PO
[2023-07-04 05:13] VITALS: BP 145/83; PULSE 117; RESP 17; TEMP 97.7; O2SAT 97
[2023-07-04] MEDS ORDERED: NACL 0.9% 1,000 ML IV ONE (07:05)
[2023-07-04] MEDS ORDERED: ONDANSETRON 4 MG/2 ML VIAL IVP ONE (07:05)
[2023-07-04 07:59] LABS: BASOPHILS # (AUTO) 0.1 K/uL (0.00-0.22); BASOPHILS % (AUTO) 1.4 % (0.0-2.0); EOSINOPHILS # (AUTO) 0.4 K/uL (0-0.4); EOSINOPHILS % (AUTO) 4.8 % (0.0-4.0); HEMATOCRIT 28.3 % (36-48); HEMOGLOBIN 8.5 g/dL (12.0-16.0); LYMPHOCYTES # (AUTO) 1.2 K/uL (2.5-16.5); LYMPHOCYTES % (AUTO) 16.3 % (20.5-51.1); MEAN CORPUSCULAR HEMOGLOBIN 23 pg (27-31); MEAN CORPUSCULAR HGB CONC 30 g/dL (33-37); MONOCYTES # (AUTO) 0.6 K/uL (0.8-1.0); MONOCYTES % (AUTO) 7.6 % (1.7-9.3); NEUTROPHILS # (AUTO) 5.1 K/uL (1.8-7.7); NEUTROPHILS % (AUTO) 69.9 % (42.2-75.2); PLATELET COUNT (AUTO) 431 K/uL (140-450); RED BLOOD CELL COUNT(AUTO) 3.68 MIL/uL (4.20-5.40); RED CELL DISTRIBUTION WIDTH 24.2 % (11.6-13.7); WHITE BLOOD COUNT (AUTO) 7.3 K/uL (4.8-10.8)
[2023-07-04 08:29] LABS: ALBUMIN 2.9 g/dL (3.4-5.0); ANION GAP 13.5 (8-16); CALCIUM 8.5 mg/dL (8.5-10.1); CARBON DIOXIDE 23.7 mmol/L (21-32); CREATININE 1.3 mg/dL (0.6-1.3); POTASSIUM 4.2 mmol/L (3.5-5.1); TOTAL BILIRUBIN 0.4 mg/dL (0.0-1.0); TOTAL PROTEIN, SERUM 6.9 g/dL (6.4-8.2)
[2023-07-04 10:40] LABS: APPEARANCE,URINE CLEAR (CLEAR); BILIRUBIN,URINE NEGATIVE (NEGATIVE); BLOOD, URINE NEGATIVE (NEGATIVE); LEUKOCYTE ESTERASE ,URINE NEGATIVE (NEGATIVE); NITRITE, URINE NEGATIVE (NEGATIVE); PROTEIN,URINE TRACE (NEGATIVE); UGLUCOSE TRACE (NEGATIVE)
[2023-07-04 10:42] LABS: COLOR,URINE ORANGE (YELLOW)
[2023-07-04] MEDS ORDERED: ONDA-188 SL (11:02)
[2023-07-04 11:15] VITALS: BP 136/76; PULSE 83; RESP 17; TEMP 97.7; O2SAT 99
== END 2023-07-04 11:15 | disposition home or self-care (01) ==
LOC: MED 05:05
DX: R11.2 Nausea with vomiting, unspecified (principal); E86.0 Dehydration; D64.9 Anemia, unspecified; E88.09 Other disorders of plasma-protein metabolism, not elsewhere classified; J45.909 Unspecified asthma, uncomplicated; Z79.899 Other long term (current) drug therapy
CPT/HCPCS: 36415; 80053; 81003; 83690; 85025; 93005; 96374; 99284; J2405; J7030

== ENCOUNTER 2023-07-09 21:37 | Emergency (ER) | payer MEDICAID ==
[~2023-07-09] VITALS: Ht 157.5 cm; Wt 79.4 kg
[~2023-07-09 21:37] MED LIST changes: +ONDA-188 SL
[2023-07-09 22:00] VITALS: BP 116/68; PULSE 122; RESP 23; TEMP 98; O2SAT 97
[2023-07-09 22:59] VITALS: BP 116/68; PULSE 122; RESP 23; TEMP 98; O2SAT 97
== END 2023-07-09 22:45 | disposition left against medical advice (07) ==
LOC: MED 21:37
DX: R19.7 Diarrhea, unspecified (principal); Z53.21 Procedure and treatment not carried out due to patient leaving prior to being seen by health care provider
CPT/HCPCS: 99281

== ENCOUNTER 2024-05-22 16:23 | Emergency (ER) | payer OTHER ==
[~2024-05-22] VITALS: Ht 162.6 cm; Wt 96.2 kg
[2024-05-22 16:26] VITALS: BP 164/107; PULSE 107; RESP 18; TEMP 97.6; O2SAT 96
[2024-05-22] MEDS ORDERED: [UNRECOGNIZED DRUG - CODE] OP (18:16)
[2024-05-22] MEDS ORDERED: PRED20TA5 PO (18:16)
[2024-05-22] MEDS ORDERED: VALA1TAB40 PO (18:16)
[2024-05-22 18:45] VITALS: BP 164/99; PULSE 94; RESP 16; TEMP 98.2; O2SAT 99
== END 2024-05-22 18:46 | disposition home or self-care (01) ==
LOC: MED 16:23
DX: G51.0 Bell's palsy (principal); J45.909 Unspecified asthma, uncomplicated; I10 Essential (primary) hypertension; F15.90 Other stimulant use, unspecified, uncomplicated; Z79.899 Other long term (current) drug therapy
CPT/HCPCS: 70450; 82948; 99284